=== PATIENT | female | born 1940 | race Caucasian/White ===

== ENCOUNTER 2023-08-24 10:45 | Inpatient (IN) | payer MEDICARE, SELFPAY ==
[2023-08-24] VITALS (8 sets, daily range): BP systolic 127–153; BP diastolic 52–79; PULSE 75–92; RESP 14–25; TEMP 36.9–37.3; O2SAT 95–100
--- NOTE | ~2023-08-24 | MR_ITS ---
EXAMINATION: MR brain/brain stem wo con DATE: 08/25/2023 14:39 INDICATION: TIA/LT sided weakness TECHNIQUE: Magnetic resonance imaging (MRI) of the brain and brainstem was performed without intraven ous contrast. Sequences included sagittal and axial T1-weighted SE, axial diffusion-weighted FS EPI A SSET, axial T2*-weighted GRE, axial T2-weighted FLAIR Propeller, and axial T2-weighted Propeller. Pos tcontrast axial and coronal T1-weighted SE was obtained. Apparent diffusion coefficient (ADC) maps we re created. COMPARISON: CT brain 08/24/2023. FINDINGS: No abnormal restricted diffusion to suggest acute ischemic infarct. No MRI evidence of hemorrhage or extra-axial collection. No suspicious foci of susceptibility to suggest prior intraparenchymal hemorr tricia. Scattered foci of white matter hyperintensity, likely representing mild small vessel ischemic d isease. No evidence of advanced or lobar predominant parenchymal volume loss. The basilar cisterns ar e patent. Flow voids are preserved. Right mastoid fluid. Paranasal sinuses are within normal limits. Globes and orbital contents are within normal limits. IMPRESSION: No acute intracranial abnormality. Reviewed, dictated and finalized at location K.
--- NOTE | ~2023-08-24 | CT_ITS ---
EXAMINATION: CT abdomen pelvis w con DATE: 08/24/2023 12:24 INDICATION: Lower abdominal pain. TECHNIQUE: Computed tomography (CT) of the abdomen and pelvis was performed with 100 mL Omnipaque 350 intravenous contrast. Automated exposure control and iterative reconstruction technique were employe d. The dose-length product was 191.19 mGy-cm. COMPARISON: None. FINDINGS: The visualized portions of the lung bases demonstrate mild atelectasis. No pleural effusion . The heart size is normal. No pericardial effusion. The liver, gallbladder, spleen, pancreas, adrena l glands, and kidneys are normal. There are no dilated loops of bowel. The appendix is not visualized . Aortic atherosclerosis is noted. There are no pathologically enlarged lymph nodes. There is no free intraperitoneal fluid. There is mild lumbar spondylosis. IMPRESSION: 1. No etiology for the patient's symptoms. Reviewed, dictated and finalized at location A.
--- NOTE | ~2023-08-24 | CT_ITS ---
EXAMINATION: CT brain wo con DATE: 08/24/2023 12:24 INDICATION: Altered mental status. TECHNIQUE: Computed tomography (CT) of the head was performed without intravenous contrast. The mA wa s adjusted according to patient size. Iterative reconstruction technique was employed. The dose-lengt h product was 529.67 mGy-cm. COMPARISON: None FINDINGS: There is no intracranial hemorrhage, acute infarction, or abnormal intracranial mass lesion . The ventricles are normal in size. There is mild mucosal thickening in the ethmoid sinuses. There i s a small right mastoid effusion. IMPRESSION: 1. Normal brain. Reviewed, dictated and finalized at location A. IMPRESSION: 1. Normal brain.
--- NOTE | ~2023-08-24 | XR_ITS ---
EXAMINATION: XR chest 1V portable DATE: 08/24/2023 11:19 INDICATION: Altered mental status. TECHNIQUE: A single frontal view of the chest was obtained. COMPARISON: None. FINDINGS: There is a diffuse interstitial pattern, consistent mild pulmonary edema. No pleural effusi on or pneumothorax. The heart size is normal. IMPRESSION: 1. Mild pulmonary edema. Reviewed, dictated and finalized at location A. IMPRESSION: 1. Mild pulmonary edema.
--- NOTE | ~2023-08-24 | CT_ITS ---
EXAMINATION: CTA brain carotid DATE: 08/25/2023 14:52 INDICATION: TIA/LT sided weakness TECHNIQUE: Computed tomographic angiography (CTA) of the head was performed without and with 100 mL O mnipaque-350 intravenous contrast. CTA of the neck was performed with intravenous contrast. Automated exposure control and iterative reconstruction technique were employed. The dose-length product was 1 480.10 mGy-cm. Maximum intensity projection and volume rendered 3D-reconstructions were created by isa jarvis technologist on a separate workstation. COMPARISON: CT brain 08/24/2023; MR brain 08/25/2023. FINDINGS: CT BRAIN: No acute large vessel infarct, intracranial hemorrhage, mass, or hydrocephalus. Mild chronic white ma tter change. Right mastoid fluid. Mild right inferior maxillary sinus mucosal thickening. CTA HEAD: No large vessel occlusion, aneurysm, high flow vascular malformation, nidus or extravasation. Persist ent origin of the right posterior cerebral artery, a normal variant CTA NECK: Aortic arch and proximal great vessels: Aberrant right subclavian artery, a normal variant. No signif icant aortic arch or branch vessel plaque. Right common carotid, carotid bifurcation, and internal carotid artery: Mild calcified plaque at the bifurcation.There is 0% stenosis of the proximal right internal carotid artery relative to normal dis betzy artery lumen diameter (NASCET criteria). Left common carotid, carotid bifurcation, and internal carotid artery: Mild calcified plaque at the b ifurcation.There is 0% stenosis of the proximal left internal carotid artery relative to normal dista l artery lumen diameter (NASCET criteria). Vertebral arteries: No significant plaque or stenosis. Left vertebral artery is dominant. Other findings: Degenerative changes in the cervical spine. Mild biapical pleural thickening. Septal thickening in the lungs. IMPRESSION: No acute intracranial process. No large vessel intracranial occlusion, high-grade intracranial stenosis, or aneurysm. No carotid or vertebral artery occlusion, dissection, or significant stenosis. Reviewed, dictated and finalized at location K. IMPRESSION: No acute intracranial process. No large vessel intracranial occlusion, high-grade intracranial stenosis, or an eurysm. No carotid or vertebral artery occlusion, dissection, or significant stenosis.
--- NOTE | 2023-08-24 11:01 | ECG_ITS ---
Test Date: 2023-08-24 11:19:36 Measurements Intervals [place] Rate: 79 P: 24 NV: 157 QRS: 29 QRSD: 86 T: 47 QT: 359 QTc: 412 Interpretive Statements SINUS RHYTHM NORMAL ECG No previous ECG available for comparison Electronically Signed On 08-25-2023 07:33:40 CDT by Hoang London D.O.
--- NOTE | 2023-08-24 11:05 | ED.GENADULT ---
HPI - General Adult General Chief complaint: Altered Mental Status Stated complaint: CONFUSION X 4D Time Seen by Provider: 08/24/23 10:56 History of Present Illness HPI narrative: Patient 82-year-old female who presents emergency department with chief complaint of altered mental status. Per the patient's family about 2 weeks ago they noticed that she started to have decline after her significant other required hospitalization longterm placement the patient now has had issues with confusion worse at night where she had a shuffling gait and has been forgetting things and having difficulty caring for self. The patient has had several accidents where she is thigh urinated on herself the patient was seen in urgent care and started on nitrofurantoin for possible UTI the patient does have some history of dementia but has not really seen her primary care provider in extended period of time Related Data Allergies Allergy/AdvReac Type Severity Reaction Status Date / Time Sulfa (Sulfonamide Allergy Unknown Unknown Verified 08/24/23 10:47 Antibiotics) Review of Systems Review of Systems: A 10 system review of systems was completed on the patient and is negative except for what is stated in the HPI. Nursing and ancillary documentation was reviewed. [facility] Family History Family History Sibling Family history of diabetes mellitus in first degree relative Social History Social History Smoking status: Never smoker Alcohol intake: never Exam Narrative: GENERAL: Well-appearing, well-nourished, and in no acute distress. HEAD: Normocephalic, atraumatic. EYES: PERRLA and EOMI. ENT: Nares clear, no rhinorrhea or epistaxis. Mucous membranes moist. NECK: Supple. CHEST: Clear to auscultation. No respiratory distress. HEART: Regular rate and rhythm. No murmur heard. Normal peripheral pulses. ABDOMEN: Soft, nontender, nondistended, normal active bowel sounds. EXTREMITIES: Normal range of motion. No edema. SKIN: Warm, dry, no rash. NEURO: No focal deficits. Alert and oriented x3. PSYCH: Normal mood and affect. Course Vital Signs Vital signs: Vital Signs Pulse Rate 80 08/24/23 11:05 Respiratory Rate 14 08/24/23 11:05 Blood Pressure 133/79 08/24/23 11:05 Pulse Oximetry 98 07/06/24 11:05 Oxygen Delivery Room Air 08/24/23 11:05 Pulse Rate 88 08/24/23 11:35 Respiratory Rate 14 08/24/23 11:35 Blood Pressure 148/77 H 08/24/23 11:35 Pulse Oximetry 97 08/24/23 11:35 Oxygen Delivery Room Air 08/24/23 11:35 Medical Decision Making MDM Narrative Medical decision making narrative: Differential diagnosis includes altered mental status, CVA, electrolyte abnormality, dehydration, UTI, pneumonia, intra-abdominal infection Laboratory studies were obtained on the patient showed a white count of 6.1 electrolytes showed a BUN of 18 creatinine 00.7 liver enzymes were mildly elevated with an AST of 139 ALT of 107 troponin was negative BNP was 3 8 5 procalcitonin 0.3 urinalysis showed 11-20 white blood cells 1+ leukocyte esterase COVID flu and RSV were negative Chest x-ray showed no focal infiltrate CT head showed no acute abnormality CT of the abdomen pelvis showed no acute abnormality Patient started on Rocephin given the altered mental status the patient was admitted the hospitalist service Vital Signs Vital Signs: Vital Signs Pulse Rate 80 08/24/23 11:05 Respiratory Rate 14 08/24/23 11:05 Blood Pressure 133/79 08/24/23 11:05 Pulse Oximetry 98 08/24/23 11:05 Oxygen Delivery Room Air 08/24/23 11:05 Pulse Rate 88 08/24/23 11:35 Respiratory Rate 14 08/24/23 11:35 Blood Pressure 148/77 H 08/24/23 11:35 Pulse Oximetry 97 08/24/23 11:35 Oxygen Delivery Room Air 08/24/23 11:35 Lab Data 08/24/23 11:26 06
[2023-08-24] MEDS: SODIUM CHLORIDE 0.9% IV 1,000 ML 999 ML IV CONT (11:24)
[2023-08-24 11:36] LABS: Basophils Percent Auto 0.3 % (0.2-1.2); Eosinophils Absolute Auto 0.1 K/mm3 (0-0.3); Hematocrit 37.5 % (37.0-47.0); Hemoglobin 12.6 g/dL (12.0-15.0); Immature Granulocyte Absolute 0.04 K/mm3 (0.00-0.031); Immature Granulocyte Percent A 0.7 % (0-0.5); Immature Platelet Fraction Pct 2.5 % (0.9-11.2); Lymphocytes Absolute Auto 0.18 K/mm3 (0.9-3.2); Mean Corpuscular HGB Conc 33.6 g/dl (32-36); Mean Corpuscular Hemoglobin 31.5 pg (26-34); Mean Corpuscular Volume 93.8 fl (80-100); Mean Platelet Volume 9.5 fl (7.4-10.4); Monocytes Absolute Auto 0.5 K/mm3 (0.1-0.6); Monocytes Percent Auto 7.9 % (2.6-8.5); Neutrophils Absolute Auto 5.2 K/mm3 (1.3-6.7); Neutrophils Percent Auto 86.1 % (45.5-73.1); Platelet Count Result 123 k/mm3 (150-375); Red Cell Distribution Width 12.9 % (11.5-14.5); White Blood Count 6.1 K/mm3 (4.5-10.0)
[2023-08-24 11:46] LABS: Prothrombin Time 13.3 Seconds (11.1-14.7)
[2023-08-24 11:47] LABS: Partial Thromboplastin Time 28.8 Seconds (22.3-36.8)
[2023-08-24 11:48] LABS: Alanine Aminotransferase 107 U/L (6-35); Albumin Level 3.8 g/dL (3.5-5.1); Alkaline Phosphatase 113 U/L (38-126); Anion Gap 5 mmol/L (4-12); Aspartate Amino Transferase 139 U/L (14-36); Bilirubin,Total 1.3 mg/dL (0.2-1.3); Blood Urea Nitrogen 18 mg/dL (7-17); Carbon Dioxide 28 mmol/L (22-30); Chloride 101 mmol/L (98-107); Estimated Glomerular Filt Rate > 60; Glucose 99 mg/dL (65-110); Lactic Acid Reflex 1.1 mmol/L (0.7-2.0); Potassium 3.5 mmol/L (3.4-5.0); Sodium 134 mmol/L (137-145)
[2023-08-24 11:59] LABS: NT Pro B Type Natriuretic Pept 385 pg/mL (19.9-100); Troponin I < 0.012 ng/mL (0.000-0.034)
[2023-08-24 12:00] LABS: Appearance Urine Clear (Clear); Bacteria Urine None Seen /hpf; Bilirubin Urine Negative (Negative); Blood Urine Negative (Negative); Color Urine Yellow (Yellow); Glucose Urine UA Negative (Negative); Ketones Urine Negative (Negative); Leukocyte Esterase Ur 1+ LEU/UL (Negative); Need Manual Microscopic Reviewed; Nitrate Urine Negative (Negative); Non Pathogenic Casts 0-2; Protein Urine Negative (Negative); RBC Urine 0-2 /hpf (0-2); Specific Grav Ur 1.006 (1.001-1.035); Squamous Epithelial Cell Urine None Seen /hpf (Few); pH Urine 6.5 (5.0-9.0)
[2023-08-24 12:01] LABS: Add Urine Microscopic? YES
[2023-08-24 12:05] LABS: Procalcitonin 0.3 ng/mL
[2023-08-24 12:11] LABS: Influenza A QL RT-PCR Negative (Negative); Influenza B QL RT-PCR Negative (Negative); RSV RNA, RT-PCR Negative (Negative); SARS-CoV-2 RNA PCR Negative (Negative)
--- NOTE | 2023-08-24 14:36 | PM.IMHP ---
H&P: HPI History of Present Illness Date/Time: 08/24/23 14:36 Chief Complaint: AMS Narrative: 82 y/o F presents here with AMS with PMH of dementia, arthritis, and depression. The patient presents here from home with family for further evaluation of AMS. Patient is typically A/Ox4. Family at bedside is reporting that patient has been declining over the past week. Family citing a new shuffling gait, more forgetful, difficulty performing her ADLs, new incontinence as examples. Precipitated by her requiring hospitalization and subsequent alf placement ([facility] in [place]) about 3 weeks ago. They were living at home together and independently prior. Patient was seen on 08/20 at a local urgent care. There she was diagnosed with the UTI and started on Macrobid 100 mg b.i.d. x7 days on 08/21/2023. With the antibiotics they have seen no improvement in her mentation, however they were concerned that she is no longer safe at home with them at night. Has been home alone during the day and has been staying with her niece or nephew at night. Initial VS at presentation: HR 80, RR 14, 133/79, and 98% on RA. ED workup showed: No leukocytosis, no anemia, normal coags, sodium 134, creatinine 0.7 and GFR >60, BNP 385, procalcitonin 0.3, lactic 1.1. UA showed 1+ leuks and 11-20 WBC. CXR showed mild pulmonary edema. Head CT showed normal aging brain. CT abdomen/pelvis showed no etiology for the patient's symptoms. Review of Systems Review of Systems: All systems reviewed & are unremarkable except as noted in HPI and below [facility] Past Medical History Medical History Arthritis Dementia Depression Family History Family History Sibling Family history of diabetes mellitus in first degree relative Social History Social History Smoking status: Never smoker Alcohol intake: never Substance use: never Do You Feel Safe in your Home?: Yes Lack of Transportation: No Lack of Food: Never True Current Housing: I Have Housing Concerned About Future Housing: No Difficulty Paying Gas/Electric Bills: No Difficulty Paying for Meds: No Currently Unemployed: No Education: High School Diploma/GED Difficulty w/ Childcare or Family Care: No Spiritual care concerns: No Meds Home Medications and Allergies Home Medications Medication Instructions Recorded Confirmed Type aripiprazole 2 mg tablet 2 mg PO HS 08/24/23 08/24/23 History sertraline 25 mg tablet 25 mg PO DAILY 08/24/23 08/24/23 History Allergies Allergy/AdvReac Type Severity Reaction Status Date / Time Sulfa (Sulfonamide Allergy Unknown Unknown Verified 08/24/23 10:47 Antibiotics) Vital Signs Vital Signs - 24 hr 08/24/23 11:05 08/24/23 11:35 08/24/23 11:35 Pulse Rate 80 80 Respiratory Rate 14 Blood Pressure 133/79 Pulse Oximetry 98 98 Oxygen Delivery Room Air Room Air 08/24/23 11:35 08/24/23 13:30 08/24/23 12:30 Pulse Rate 88 84 75 Respiratory Rate 14 25 H 14 Blood Pressure 148/77 H 140/62 148/77 H Pulse Oximetry 97 98 98 Oxygen Delivery 08/24/23 14:25 Pulse Rate 82 Respiratory Rate 14 Blood Pressure 134/68 Pulse Oximetry 97 Oxygen Delivery Exam Const: General: comfortable and no acute distress Other: , female, nontoxic appearance HENMT: Face/Nose/Sinus: Normal nares present Mouth: Yes moist mucous membranes Eyes: General: appearance normal, both eyes and all related structures Sclera: sclerae normal Pupils: Equal, round and reactive pupils present EOM: EOMs intact bilaterally Resp: Effort & Inspection: normal respiratory effort Auscultation: clear to auscultation bilaterally Cardio: Rate: regular rate Rhythm: regular rhythm Other: +/- murmur best heard at the mitral re
[2023-08-24] MEDS: ARIPiprazole 2 MG TABLET PO (21:40)
[2023-08-24] MEDS: SODIUM CHLORIDE 0.9% IV 1,000 ML 100 ML IV CONT (21:43)
[2023-08-25 05:15] VITALS: BP 116/60; PULSE 80; RESP 20; TEMP 36.1; O2SAT 95
[2023-08-25 06:14] LABS: Basophils Percent Auto 0.7 % (0.2-1.2); Eosinophils Absolute Auto 0.3 K/mm3 (0-0.3); Eosinophils Percent Auto 7.9 % (0-4.4); Hematocrit 33.2 % (37.0-47.0); Hemoglobin 11.2 g/dL (12.0-15.0); Immature Granulocyte Absolute 0.02 K/mm3 (0.00-0.031); Immature Granulocyte Percent A 0.5 % (0-0.5); Lymphocytes Absolute Auto 0.23 K/mm3 (0.9-3.2); Lymphocytes Percent Auto 5.7 % (18.3-44.2); Mean Corpuscular HGB Conc 33.7 g/dl (32-36); Mean Platelet Volume 9.8 fl (7.4-10.4); Monocytes Absolute Auto 0.5 K/mm3 (0.1-0.6); Monocytes Percent Auto 12.9 % (2.6-8.5); Neutrophils Absolute Auto 2.9 K/mm3 (1.3-6.7); Neutrophils Percent Auto 72.3 % (45.5-73.1); Platelet Count Result 111 k/mm3 (150-375); Red Blood Count 3.61 M/mm3 (4.2-5.4); Red Cell Distribution Width 12.5 % (11.5-14.5)
[2023-08-25 06:38] LABS: Alanine Aminotransferase 156 U/L (6-35); Alkaline Phosphatase 141 U/L (38-126); Anion Gap 5 mmol/L (4-12); Aspartate Amino Transferase 148 U/L (14-36); Blood Urea Nitrogen 10 mg/dL (7-17); Calcium 8.5 mg/dL (8.4-10.2); Carbon Dioxide 27 mmol/L (22-30); Chloride 105 mmol/L (98-107); Estimated Glomerular Filt Rate > 60; Glucose 99 mg/dL (65-110); Potassium 3.1 mmol/L (3.4-5.0); Sodium 137 mmol/L (137-145)
--- NOTE | 2023-08-25 08:08 | PM.IMPN ---
Progress Note: A&P Assessment and Plan (1) Altered mental status: Code(s): R41.82 - Altered mental status, unspecified Status: Acute (2) Acute UTI: Code(s): N39.0 - Urinary tract infection, site not specified Status: Acute (3) Elevated liver enzymes: Code(s): R74.8 - Abnormal levels of other serum enzymes Status: Acute (4) Dementia: Code(s): F03.90 - Unspecified dementia, unspecified severity, without behavioral disturbance, psychotic disturbance, mood disturbance, and anxiety Status: Chronic (5) Depression: Code(s): F32.A - Depression, unspecified Status: Chronic Plan AMS Unknown baseline CT head: Normal brain. complicated by hx of dementia care coordination consulted for help with possible NH placement PT/OT to evaluate patient if patient is a good candidate for NH suspect alteration secondary to recent big life change (spouse no longer in home) and current UTI LT sided weakness CTA pending MRI pending UTI CT abd/pelvis: No etiology for the patient's symptoms. 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 elevated liver enzymes unknown cause will monitor and PT/OT pending for discharge recommendations. Time Spent With Patient Time with patient: 15 - 25 minutes Subjective Date/time seen: 08/25/23 08:08 Interval history: Admission: Medical Record 82 y/o F presents here with AMS with PMH of dementia, arthritis, and depression. The patient presents here from home with family for further evaluation of AMS. Patient is typically A/Ox4. Family at bedside is reporting that patient has been declining over the past week. Family citing a new shuffling gait, more forgetful, difficulty performing her ADLs, new incontinence as examples. Precipitated by her requiring hospitalization and subsequent group home placement ([facility] in [place]) about 3 weeks ago. They were living at home together and independently prior. Patient was seen on 08/20 at a local urgent care. There she was diagnosed with the UTI and started on Macrobid 100 mg b.i.d. x7 days on 08/21/2023. With the antibiotics they have seen no improvement in her mentation, however they were concerned that she is no longer safe at home with them at night. Has been home alone during the day and has been staying with her niece or nephew at night. Initial VS at presentation: HR 80, RR 14, 133/79, and 98% on RA. ED workup showed: No leukocytosis, no anemia, normal coags, sodium 134, creatinine 0.7 and GFR >60, BNP 385, procalcitonin 0.3, lactic 1.1. UA showed 1+ leuks and 11-20 WBC. CXR showed mild pulmonary edema. Head CT showed normal aging brain. CT abdomen/pelvis showed no etiology for the patient's symptoms. 08/25/2023: Assumed Care Patient is pleasantly confused but did no her date of and the year. Some LT sided weakness noted will get CTA/MRI, UA culture pending. PT/OT ordered for discharge recommendations unsure patient baseline. Review of Systems Review of Systems: All systems reviewed & are unremarkable except as noted in HPI and below Exam Narrative: Physical Exam: GENERAL: Alert and oriented x 2, pleasantly confused . No acute distress. EYES: EOMI. No scleral icterus. PERRLA. HEENT: Moist m
[2023-08-25 08:46] LABS: Lipase 107 U/L (23-300)
[2023-08-25 09:19] LABS: Hepatitis B Surface Antigen Negative (Negative)
[2023-08-25 09:25] LABS: HAV RESULT Negative (Negative); Hepatitis B Core IgM Result Negative (Negative)
[2023-08-25 09:37] LABS: Hepatitis C Virus Antibody Negative (Negative)
[2023-08-25] MEDS: SERTRALINE HCL 25 MG TABLET PO (10:56)
[2023-08-25] MEDS: PANTOPRAZOLE 40 MG TABLET PO (10:56)
[2023-08-25] MEDS: POTASSIUM CHLORIDE 20 MEQ ER TABLET 40 MEQ PO (10:56)
[2023-08-25] MEDS: SODIUM CHLORIDE 0.9% IV 1,000 ML 75 ML IV CONT (11:00)
[2023-08-25 13:58] VITALS: BMI 24.5
[2023-08-25 14:00] VITALS: BP 147/65; PULSE 76; RESP 20; TEMP 36.8; O2SAT 98
--- NOTE | 2023-08-25 15:03 | PCPTNOTE ---
Attempted to evaluate patient, but patient is out of room getting MRI performed. Physical therapy will check on patient tomorrow as time allows.
[2023-08-25 20:00] VITALS: O2SAT 97
[2023-08-25 21:08] VITALS: BP 166/73; PULSE 72; RESP 14; TEMP 36.9; O2SAT 97
[2023-08-25] MEDS: ARIPiprazole 2 MG TABLET PO (21:25)
[2023-08-26 05:29] VITALS: BP 168/72; PULSE 77; RESP 12; TEMP 36.4; O2SAT 94
[2023-08-26 05:47] LABS: Hematocrit 35.7 % (37.0-47.0); Hemoglobin 12.4 g/dL (12.0-15.0); Mean Corpuscular HGB Conc 34.7 g/dl (32-36); Mean Corpuscular Hemoglobin 30.8 pg (26-34); Mean Corpuscular Volume 88.8 fl (80-100); Mean Platelet Volume 9.3 fl (7.4-10.4); Platelet Count Result 128 k/mm3 (150-375); Red Blood Count 4.02 M/mm3 (4.2-5.4); Red Cell Distribution Width 12.4 % (11.5-14.5); White Blood Count 4.1 K/mm3 (4.5-10.0)
[2023-08-26 05:57] LABS: Alanine Aminotransferase 343 U/L (6-35); Albumin Level 3.6 g/dL (3.5-5.1); Alkaline Phosphatase 258 U/L (38-126); Anion Gap 9 mmol/L (4-12); Aspartate Amino Transferase 294 U/L (14-36); Bilirubin,Total 1.3 mg/dL (0.2-1.3); Blood Urea Nitrogen 10 mg/dL (7-17); Carbon Dioxide 25 mmol/L (22-30); Chloride 106 mmol/L (98-107); Cholesterol 165 mg/dL (0-200); Estimated CRCL calculation 55 ml/min; Estimated Glomerular Filt Rate > 60; Glucose 119 mg/dL (65-110); HDL Direct 59 mg/dL; Potassium 3.4 mmol/L (3.4-5.0); Sodium 140 mmol/L (137-145); Triglycerides 84 mg/dL (<150)
[2023-08-26 06:08] LABS: LDL Cholesterol Direct 87 mg/dL
[2023-08-26] MEDS: PANTOPRAZOLE 40 MG TABLET PO (08:22)
[2023-08-26] MEDS: SERTRALINE HCL 25 MG TABLET PO (08:22)
[2023-08-26] MEDS: SODIUM CHLORIDE 0.9% IV 1,000 ML 75 ML IV CONT (09:18)
[2023-08-26 14:00] VITALS: BP 174/88; PULSE 72; RESP 18; TEMP 36.6; O2SAT 100
--- NOTE | 2023-08-26 15:26 | PM.IMPN ---
Progress Note: A&P Assessment and Plan (1) Dementia: Code(s): F03.90 - Unspecified dementia, unspecified severity, without behavioral disturbance, psychotic disturbance, mood disturbance, and anxiety Status: Chronic (2) Depression: Code(s): F32.A - Depression, unspecified Status: Chronic (3) Acute UTI: Code(s): N39.0 - Urinary tract infection, site not specified Status: Acute (4) Altered mental status: Code(s): R41.82 - Altered mental status, unspecified Status: Acute (5) Elevated liver enzymes: Code(s): R74.8 - Abnormal levels of other serum enzymes Status: Acute Plan # Recent UTI - patient had been diagnosed with UTI prior to hospitalization from 08/20 was given 7 days of Macrobid, patient now being admitted will give 3 days of Rocephin 08/23- - cultures are showing no growth, was on antibiotics prior to cultures being obtained - we will treat as failing outpatient antibiotics # altered mental status # dementia, delirium - likely has some delirium and exacerbation of dementia with her change of living situation with her going to nursing facility - will see for patient to go to [facility] facility as well - unclear if the change in mental status is due to this UTI or more likely delirium - stroke workup negative including CTA, MRI - PT OT consulted # hypokalemia -Repeating as needed,potassium 3.4 # chronic conditions - dementia: Aripiprazole - depression: sertraline - GERD: Protonix Diet: heart health DVT prophylaxis: SCDs, SQ heparin Code status: full code Disposition: pending [facility] facility placement Time Spent With Patient Time: 35 minutes Subjective Date/time seen: 08/26/23 15:26 Interval history: patient seen examined. She is doing well no new complaints. We will discontinue IV fluids. Continue Rocephin for UTI , will complete 3 day course. stroke workup negative. Still waiting for senior living placement. patient denies fever, chills, nausea, vomiting, diarrhea, chest pain, shortness of breath, dysuria. Review of Systems Review of Systems: 10 point ROS complete, negative other than what is specified in HPI. Limited ROS due to dementia Exam Narrative: - GENERAL: pleasant elderly woman no acute distress. Well-nourished. - EYES: EOMI. Anicteric. - HENT: Moist mucous membranes. - LUNGS: Clear to auscultation bilaterally, no wheezing, rhonchi, or rales. - CARDIOVASCULAR: Regular rate and rhythm. No murmur. No JVD. - ABDOMEN: Soft, non-tender and non-distended. No palpable masses. - EXTREMITIES: No edema. Peripheral pulses 2+. Non-tender. - NEUROLOGIC: No focal neurological deficits. CN II-XII grossly intact. - PSYCHIATRIC: Awake, Alert, disoriented, oriented to self. calm, flat affect - LYMPH: No cervical lymphadenopathy. Objective Data Vital Signs Vital Signs: Vital Signs - 24 hr 08/25/23 21:08 08/25/23 20:00 08/26/23 05:29 Temperature 36.9 C 36.4 C Pulse Rate 72 77 Respiratory Rate 14 12 Blood Pressure 166/73 H 168/72 H Pulse Oximetry 97 97 94 Oxygen Delivery Room Air 08/26/23 08:00 08/26/23 11:24 08/26/23 14:00 Temperature 36.6 C Pulse Rate 72 Respiratory Rate 18 Blood Pressure 174/88 H Pulse Oximetry 100 Oxygen Delivery Room Air Room Air Intake/Output Intake/Output: Intake & Output 08/23/23 08/24/23 08/25/23 08/26/23 23:59 23:59 23:59 23:59 Intake Total 1410 1490 2170 Output Total 500 1900 Balance 1410 990 270 Meds/Results Medications: Active Medications Generic Name Dose Route Start Last Admin Trade Name Freq PRN Reason Stop Dose Admin Acetaminophen 650 mg 08/24/23 12:47 Acetaminophen 325 Mg Tablet PO Q4H PRN Mild Pain (1-3) or Fever Aripiprazole 2 mg 08/24/23 21:00 08/25/23 21:25 Aripiprazole 2 Mg Tablet PO 2 mg HS LAMAR Administration Ceftriaxone Sodium 1 gm in 50 mls @ 100 mls/hr 08/25/23 09:
[2023-08-26 20:00] VITALS: O2SAT 100
[2023-08-26] MEDS: HEPARIN SODIUM 5,000 UNITS/ML VIAL 5000 UNITS SUB-Q (20:33)
[2023-08-26] MEDS: ARIPiprazole 2 MG TABLET PO (20:33)
[2023-08-26 20:52] VITALS: BP 156/69; PULSE 72; RESP 16; TEMP 36.7; O2SAT 99
[2023-08-27 05:45] LABS: Hematocrit 37.8 % (37.0-47.0); Mean Corpuscular HGB Conc 34.4 g/dl (32-36); Mean Corpuscular Hemoglobin 31.3 pg (26-34); Mean Corpuscular Volume 91.1 fl (80-100); Mean Platelet Volume 9.3 fl (7.4-10.4); Platelet Count Result 164 k/mm3 (150-375); Red Blood Count 4.15 M/mm3 (4.2-5.4); Red Cell Distribution Width 12.3 % (11.5-14.5); White Blood Count 4.3 K/mm3 (4.5-10.0)
--- NOTE | 2023-08-27 05:53 | PC.NURSE ---
Patient BP 210/100 manually at this time. Spoke with Dr. Dupree, says to give hydralazine 25 mg PO once. Does not want to drop BP too fast.
[2023-08-27 06:00] VITALS: BP 210/100; PULSE 73; RESP 16; TEMP 36.9; O2SAT 99
[2023-08-27] MEDS: hydrALAZINE HCL 25 MG TABLET PO (06:01)
[2023-08-27 06:02] LABS: Alanine Aminotransferase 266 U/L (6-35); Alkaline Phosphatase 229 U/L (38-126); Anion Gap 7 mmol/L (4-12); Aspartate Amino Transferase 103 U/L (14-36); Bilirubin,Total 1.1 mg/dL (0.2-1.3); Blood Urea Nitrogen 11 mg/dL (7-17); Calcium 9.3 mg/dL (8.4-10.2); Carbon Dioxide 32 mmol/L (22-30); Chloride 101 mmol/L (98-107); Estimated CRCL calculation 48 ml/min; Estimated Glomerular Filt Rate > 60; Glucose 128 mg/dL (65-110); Potassium 3.3 mmol/L (3.4-5.0); Sodium 140 mmol/L (137-145)
[2023-08-27 07:25] VITALS: BP 157/74
[2023-08-27] MEDS: POTASSIUM CHLORIDE 20 MEQ ER TABLET 40 MEQ PO (08:19)
[2023-08-27] MEDS: amLODIPine BESYLATE 10 MG TABLET PO (08:19)
[2023-08-27] MEDS: PANTOPRAZOLE 40 MG TABLET PO (08:19)
[2023-08-27] MEDS: HEPARIN SODIUM 5,000 UNITS/ML VIAL 5000 UNITS SUB-Q (08:20)
[2023-08-27] MEDS: SERTRALINE HCL 25 MG TABLET PO (08:20)
--- NOTE | 2023-08-27 11:37 | P.PNIM_ITS ---
Progress Note: A&P Assessment and Plan (1) Acute UTI: Code(s): N39.0 - Urinary tract infection, site not specified Status: Acute (2) Altered mental status: Code(s): R41.82 - Altered mental status, unspecified Status: Acute (3) Elevated liver enzymes: Code(s): R74.8 - Abnormal levels of other serum enzymes Status: Acute (4) Dementia: Code(s): F03.90 - Unspecified dementia, unspecified severity, without behavioral disturbance, psychotic disturbance, mood disturbance, and anxiety Status: Chronic (5) Depression: Code(s): F32.A - Depression, unspecified Status: Chronic (6) Essential hypertension: Code(s): I10 - Essential (primary) hypertension Status: Acute Plan # Essential Hypertension -her blood pressure up to 210/100 -starting amlodipine 10 mg, p.r.n. hydralazine for systolic pressure greater than 170 -continue monitor blood pressure # Recent UTI - patient had been diagnosed with UTI prior to hospitalization from 08/20 was ebony ramirez 7 days of Macrobid, treating as failing outpatient antibiotics. completed Rocephin 3 day course inpatient - cultures are showing no growth, was on antibiotics prior to cultures being obtained # altered mental status # dementia, delirium - likely has some delirium and exacerbation of dementia with her change of living situation with her going to nursing facility - will see for patient to go to assisted facility as well - unclear if the change in mental status is due to this UTI or more likely delirium - stroke workup negative including CTA, MRI - PT OT consulted # hypokalemia -Repeating as needed,potassium 3.3 # chronic conditions - dementia: Aripiprazole - depression: sertraline - GERD: Protonix Diet: heart health DVT prophylaxis: SCDs, SQ heparin Code status: full code Disposition: pending assisted facility placement Time Spent With Patient Time: 35 minutes Subjective Date/time seen: 08/27/23 11:37 Interval history: Patient seen and examined. We completed antibiotics for UTI. Patient was slightly hypertensive today, starting amlodipine, p.r.n. hydralazine. Replete potassium. We are awaiting placement to [facility]. Patient denies fever, chills, nausea and diarrhea. She continues to be pleasantly confused. Review of Systems Review of Systems: 10 point ROS complete, negative other th an what is specified in HPI. Limited due to dementia Exam Narrative: - GENERAL: pleasant elderly woman no ac [place] distress. Well-nourished. - EYES: EOMI. Anicteric. - HENT: Moist mucous membranes. - LUNGS: Clear to auscultation bilateral ly, no wheezing, rhonchi, or rales. - CARDIOVASCULAR: Regular rate and rhyth m. - ABDOMEN: Soft, non-tender and non-dist ended. No palpable masses. - EXTREMITIES: No edema. Peripheral puls es 2+. Non-tender. - NEUROLOGIC: No focal neurological defi cits. CN II-XII grossly intact. - PSYCHIATRIC: Awake, Alert, disoriented , oriented to self. calm, flat affect - LYMPH: No cervical lymphaden
--- NOTE | 2023-08-27 11:37 | PM.IMPN ---
Progress Note: A&P Assessment and Plan (1) Acute UTI: Code(s): N39.0 - Urinary tract infection, site not specified Status: Acute (2) Altered mental status: Code(s): R41.82 - Altered mental status, unspecified Status: Acute (3) Elevated liver enzymes: Code(s): R74.8 - Abnormal levels of other serum enzymes Status: Acute (4) Dementia: Code(s): F03.90 - Unspecified dementia, unspecified severity, without behavioral disturbance, psychotic disturbance, mood disturbance, and anxiety Status: Chronic (5) Depression: Code(s): F32.A - Depression, unspecified Status: Chronic (6) Essential hypertension: Code(s): I10 - Essential (primary) hypertension Status: Acute Plan # Essential Hypertension -her blood pressure up to 210/100 -starting amlodipine 10 mg, p.r.n. hydralazine for systolic pressure greater than 170 -continue monitor blood pressure # Recent UTI - patient had been diagnosed with UTI prior to hospitalization from 08/20 was given 7 days of Macrobid, treating as failing outpatient antibiotics. completed Rocephin 3 day course inpatient - cultures are showing no growth, was on antibiotics prior to cultures being obtained # altered mental status # dementia, delirium - likely has some delirium and exacerbation of dementia with her change of living situation with her going to nursing facility - will see for patient to go to long-term facility as well - unclear if the change in mental status is due to this UTI or more likely delirium - stroke workup negative including CTA, MRI - PT OT consulted # hypokalemia -Repeating as needed,potassium 3.3 # chronic conditions - dementia: Aripiprazole - depression: sertraline - GERD: Protonix Diet: heart health DVT prophylaxis: SCDs, SQ heparin Code status: full code Disposition: pending long-term facility placement Time Spent With Patient Time: 35 minutes Subjective Date/time seen: 08/27/23 11:37 Interval history: Patient seen and examined. We completed antibiotics for UTI. Patient was slightly hypertensive today, starting amlodipine, p.r.n. hydralazine. Replete potassium. We are awaiting placement to residential. Patient denies fever, chills, nausea and diarrhea. She continues to be pleasantly confused. Review of Systems Review of Systems: 10 point ROS complete, negative other than what is specified in HPI. Limited due to dementia Exam Narrative: - GENERAL: pleasant elderly woman no acute distress. Well-nourished. - EYES: EOMI. Anicteric. - HENT: Moist mucous membranes. - LUNGS: Clear to auscultation bilaterally, no wheezing, rhonchi, or rales. - CARDIOVASCULAR: Regular rate and rhythm. - ABDOMEN: Soft, non-tender and non-distended. No palpable masses. - EXTREMITIES: No edema. Peripheral pulses 2+. Non-tender. - NEUROLOGIC: No focal neurological deficits. CN II-XII grossly intact. - PSYCHIATRIC: Awake, Alert, disoriented, oriented to self. calm, flat affect - LYMPH: No cervical lymphadenopathy. Objective Data Vital Signs Vital Signs: Vital Signs - 24 hr 08/26/23 14:00 08/26/23 20:00 08/26/23 20:52 Temperature 36.6 C 36.7 C Pulse Rate 72 72 Respiratory Rate 18 16 Blood Pressure 174/88 H 156/69 H Pulse Oximetry 100 100 99 Oxygen Delivery Room Air 08/27/23 06:00 08/27/23 07:25 Temperature 36.9 C Pulse Rate 73 Respiratory Rate 16 Blood Pressure 210/100 H 157/74 H Pulse Oximetry 99 Oxygen Delivery Intake/Output Intake/Output: Intake & Output 08/24/23 08/25/23 08/26/23 08/27/23 23:59 23:59 23:59 23:59 Intake Total 1410 1490 2910 240 Output Total 500 3951 Balance 1410 990 -1041 240 Meds/Results Medications: Active Medications Generic Name Dose Route Start Last Admin Trade Name Danisq PRN Reason Stop Dose Admin Acetaminophen 650 mg 08/24/23 12:47 Acetaminophen 325 Mg Tablet PO Q4H PRN M
--- NOTE | 2023-08-27 13:26 | PM.DS ---
DS: Admitting Diagnosis Discharge Date 08/27/23 Admitting Diagnosis Altered mental status, UTI DS: Discharge Diagnosis Discharge Diagnosis (1) Essential hypertension: Code(s): I10 - Essential (primary) hypertension Status: Acute (2) Depression: Code(s): F32.A - Depression, unspecified Status: Chronic (3) Elevated liver enzymes: Code(s): R74.8 - Abnormal levels of other serum enzymes Status: Acute (4) Dementia: Code(s): F03.90 - Unspecified dementia, unspecified severity, without behavioral disturbance, psychotic disturbance, mood disturbance, and anxiety Status: Chronic (5) Altered mental status: Code(s): R41.82 - Altered mental status, unspecified Status: Acute (6) Acute UTI: Code(s): N39.0 - Urinary tract infection, site not specified Status: Acute Plan # Essential Hypertension -her blood pressure up to 210/100 -starting amlodipine 10 mg -continue monitor blood pressure, f/u with PCP # Recent UTI - patient had been diagnosed with UTI prior to hospitalization from 08/20 was given 7 days of Macrobid, treating as failing outpatient antibiotics. completed Rocephin 3 day course inpatient - cultures are showing no growth, was on antibiotics prior to cultures being obtained # altered mental status # dementia, delirium - likely has some delirium and exacerbation of dementia with her change of living situation with her going to nursing facility - will see for patient to go to shelter facility as well - unclear if the change in mental status is due to this UTI or more likely delirium - stroke workup negative including CTA, MRI - PT OT consulted # hypokalemia -Repeating as needed,potassium 3.3 # chronic conditions - dementia: Aripiprazole - depression: sertraline - GERD: Protonix Diet: heart health DVT prophylaxis: SCDs, SQ heparin Code status: full code Disposition: Home with home health DS: Summary Hospital Course Reason for hospitalization: Altered mental status and UTI Hospital Course: Patient is an 82 y/o female with past medical history dementia, arthritis, depression who presents to ED on 08/24/2023 with worsening function at ADLs. Her symptoms got worse when her was hospitalized and placed in the nursing facility [facility] in [place]. On 08/21/2023 patient was seen at urgent care and was given Macrobid for UTI, however came to hospital on 08/23 for worsening functional status. Patient was treated with IV antibiotics Rocephin for 08/23-08/26. Her dementia is quite significant requiring redirecting from the nursing staff. Her labs and vitals are stable, as she completed antibiotics for UTI, she is medically stable for discharge home. Patient's family is arranging for home health aide. We can provide home health with RN for the new blood pressure medication and to monitor BP. If patient continues to fail at home with her dementia, she may require detention shelter care. Family understand and agree with plan. Status at Discharge Cognitive/behavioral status at discharge: confused at baseline, dementia Time Spent with Patient Time attestation: Total time spent providing and/or coordinating discharge services: 35 minutes Exam Narrative: - GENERAL: pleasant elderly woman no acute distress. Well-nourished. - EYES: EOMI. Anicteric. - HENT: Moist mucous membranes. - LUNGS: Clear to auscultation bilaterally, no wheezing, rhonchi, or rales. - CARDIOVASCULAR: Regular rate and rhythm. - ABDOMEN: Soft, non-tender and non-distended. No palpable masses. - EXTREMITIES: No edema. Peripheral pulses 2+. Non-tender. - NEUROLOGIC: No focal neurological deficits. CN II-XII grossly intact. - PSYCHIATRIC: Awake, Alert, disoriented, oriented to self. calm, flat affect - LYMPH: No cervical lymphadenopathy. DS: Data Data Completed and Pending Labs on day of discharge: Labs from last 24 hours
[2023-08-27 14:00] VITALS: BP 138/65; PULSE 87; RESP 16; TEMP 36.4; O2SAT 99
== END 2023-08-27 16:00 | disposition home health service (06) | DRG 690 ==
LOC: ANHED 12:50 → ANH3MEDSUR 14:42
PROVIDERS: Nurse Practitioner Family; Student in an Organized Health Care Education/Training Program; Admitting Provider Internal Medicine; Emergency Provider Emergency Medicine; PCP Internal Medicine; Visit Provider Student in an Organized Health Care Education/Training Program
DX: N39.0 Urinary tract infection, site not specified (principal); F05 Delirium due to known physiological condition; E87.6 Hypokalemia; I10 Essential (primary) hypertension; R74.8 Abnormal levels of other serum enzymes; F03.90 Unspecified dementia, unspecified severity, without behavioral disturbance, psychotic disturbance, mood disturbance, and anxiety; F32.A Depression, unspecified; Z20.822 Contact with and (suspected) exposure to COVID-19
CPT/HCPCS: 36415; 70450; 70496; 70498; 70551; 71045; 74177; 80053; 80061; 80074; 81001; 83605; 83690; 83735; 83880; 84145; 84484; 85025; 85027; 85055; 85610; 85730; 87086; 87088; 87637; 93005; 96361; 96365; 97161; 97165; 97535; 99285; A9270; G0378; J0696; J1644; J7030; Q9967

== ENCOUNTER 2023-08-29 16:32 | Inpatient (IN) | payer MEDICARE, SELFPAY ==
[2023-08-29] VITALS (10 sets, daily range): BP systolic 111–130; BP diastolic 46–70; PULSE 72–83; RESP 17–24; TEMP 36.9–37.1; O2SAT 96–100; BMI 21.2
--- NOTE | ~2023-08-29 | CT_ITS ---
EXAMINATION: CT brain wo con DATE: 08/29/2023 17:23 INDICATION: Altered mental status. TECHNIQUE: Computed tomography (CT) of the head was performed without intravenous contrast. The mA wa s adjusted according to patient size. Iterative reconstruction technique was employed. The dose-lengt h product was 605.33 mGy-cm. COMPARISON: Head CT 08/25/23 FINDINGS: There is no intracranial hemorrhage, acute infarction, or abnormal intracranial mass lesion . The ventricles are normal in size. The ventricles are normal in size. The orbits are normal. There is mild mucosal thickening in the paranasal sinuses. There is a small right mastoid effusion. IMPRESSION: 1. Normal brain. Reviewed, dictated and finalized at location E. IMPRESSION: 1. Normal brain.
--- NOTE | ~2023-08-29 | CT_ITS ---
EXAMINATION: CT abdomen pelvis w con DATE: 08/29/2023 19:09 INDICATION: Fever. Leukocytosis. Transaminitis. Urinary tract infection. TECHNIQUE: Computed tomography (CT) of the abdomen and pelvis was performed with 100 mL Omnipaque 350 intravenous contrast. Automated exposure control and iterative reconstruction technique were employe d. The dose-length product was 184.06 mGy-cm. COMPARISON: CT abdomen and pelvis 08/24/23 FINDINGS: The visualized portions of the lung bases demonstrate mild atelectasis. No pleural effusion . The heart size is normal. No pericardial effusion. The liver, gallbladder, spleen, pancreas, adrena l glands, and right kidney are normal. There is a 4 mm cyst in left kidney. There are no dilated loop s of bowel. There is diverticulosis of the colon without evidence of diverticulitis. The appendix is not visualized. Aortic atherosclerosis is noted. There are no pathologically enlarged lymph nodes. Th ere is no free intraperitoneal fluid. There is mild thoracic and lumbar spondylosis. IMPRESSION: 1. No etiology for the patient's symptoms. Reviewed, dictated and finalized at location E.
--- NOTE | ~2023-08-29 | XR_ITS ---
EXAMINATION: XR chest 2V DATE: 08/29/2023 17:46 INDICATION: Fever and cough. TECHNIQUE: Frontal and lateral views of the chest were obtained. COMPARISON: Chest single view 08/24/23, CT abdomen and pelvis 08/24/23 FINDINGS: There are Elvin B-lines, consistent mild pulmonary edema. No pleural effusion or pneumotho rax. The heart size is normal. IMPRESSION: 1. Mild pulmonary edema. Reviewed, dictated and finalized at location E. IMPRESSION: 1. Mild pulmonary edema.
--- NOTE | 2023-08-29 16:45 | ECG_ITS ---
Test Date: 2023-08-29 16:53:04 Measurements Intervals [place] Rate: 82 P: 50 LA: 149 QRS: 42 QRSD: 90 T: 60 QT: 374 QTc: 439 Interpretive Statements SINUS RHYTHM INCOMPLETE RIGHT BUNDLE BRANCH BLOCK BORDERLINE ECG Compared to ECG 08/24/2023 11:19:36 No significant changes Electronically Signed On 08-29-2023 20:40:29 CDT by Hoang London D.O.
[2023-08-29 17:12] LABS: Basophils Percent Auto 0.2 % (0.2-1.2); Eosinophils Percent Auto 0.1 % (0-4.4); Hematocrit 35.2 % (37.0-47.0); Hemoglobin 12.3 g/dL (12.0-15.0); Immature Granulocyte Absolute 0.12 K/mm3 (0.00-0.031); Immature Granulocyte Percent A 0.7 % (0-0.5); Lymphocytes Absolute Auto 0.15 K/mm3 (0.9-3.2); Lymphocytes Percent Auto 0.9 % (18.3-44.2); Mean Corpuscular HGB Conc 34.9 g/dl (32-36); Mean Corpuscular Hemoglobin 31.6 pg (26-34); Mean Corpuscular Volume 90.5 fl (80-100); Mean Platelet Volume 9.2 fl (7.4-10.4); Monocytes Absolute Auto 0.4 K/mm3 (0.1-0.6); Monocytes Percent Auto 2.5 % (2.6-8.5); Neutrophils Absolute Auto 15.8 K/mm3 (1.3-6.7); Neutrophils Percent Auto 95.6 % (45.5-73.1); Platelet Count Result 174 k/mm3 (150-375); Red Blood Count 3.89 M/mm3 (4.2-5.4); Red Cell Distribution Width 12.4 % (11.5-14.5); White Blood Count 16.6 K/mm3 (4.5-10.0)
[2023-08-29 17:23] LABS: Alanine Aminotransferase 128 U/L (6-35); Albumin Level 3.9 g/dL (3.5-5.1); Alkaline Phosphatase 171 U/L (38-126); Anion Gap 7 mmol/L (4-12); Aspartate Amino Transferase 46 U/L (14-36); Bilirubin,Total 1.2 mg/dL (0.2-1.3); Blood Urea Nitrogen 23 mg/dL (7-17); Calcium 9.3 mg/dL (8.4-10.2); Carbon Dioxide 28 mmol/L (22-30); Chloride 100 mmol/L (98-107); Estimated CRCL calculation 43 ml/min; Estimated Glomerular Filt Rate > 60; Glucose 136 mg/dL (65-110); Potassium 3.6 mmol/L (3.4-5.0); Sodium 135 mmol/L (137-145)
[2023-08-29 17:27] LABS: INR 0.9; Prothrombin Time 12.8 Seconds (11.1-14.7)
[2023-08-29 17:28] LABS: Partial Thromboplastin Time 23.7 Seconds (22.3-36.8)
--- NOTE | 2023-08-29 17:31 | ED.AMS ---
HPI - Altered Mental Status General Chief Complaint: Altered Mental Status <JANET Gerber Last Filed: 08/29/23 21:25> Stated Complaint: fever <JANET Gerber Last Filed: 08/29/23 21:25> Time Seen by Provider: 08/29/23 17:08 <Alicia De Leon PA-C - Last Filed: 08/29/23 21:25> Source: patient and family <JANET Gerber Last Filed: 08/29/23 21:25> Mode of arrival: ambulatory <JANET Gerber Last Filed: 08/29/23 21:25> Limitations: dementia <JANET Gerber Last Filed: 08/29/23 21:25> History of Present Illness HPI narrative: This is an 83-year-old female that presents to the emergency department for evaluation of altered mental status. Patient's family brought her in for evaluation. Reporting fever today and recent admission for confusion with UTI. Patient reports a sore throat and a cough. Otherwise has no complaints. <JANET Gerber Last Filed: 08/29/23 21:25> Related Data Home Medications: Home Medications Medication Instructions Recorded Confirmed aripiprazole 2 mg tablet 2 mg PO HS 08/24/23 08/24/23 sertraline 25 mg tablet 25 mg PO DAILY 08/24/23 08/24/23 <JANET Gerber Last Filed: 08/29/23 21:25> Allergies/Adverse Reactions: Allergies Allergy/AdvReac Type Severity Reaction Status Date / Time Sulfa (Sulfonamide Allergy Unknown Unknown Verified 08/29/23 16:41 Antibiotics) <JANET Gerber Last Filed: 08/29/23 21:25> Review of Systems Review of Systems: CONSTITUTIONAL: Reports fever ENT: Reports congestion, sore throat CARDIOVASCULAR: Denies chest pain or edema. RESPIRATORY: Reports cough. Denies dyspnea. GASTROINTESTINAL: Denies abdominal pain, nausea, vomiting, or diarrhea. GENITOURINARY: Denies dysuria <JANET Gerber Last Filed: 08/29/23 21:25> All systems reviewed & are unremarkable except as noted in HPI and below <Alicia De Leon PA-C - Last Filed: 08/29/23 21:25> [facility] Past Medical History Medical History: Medical History (Updated 08/29/23 @ 21:23 by Alicia De Leon PA-C) Arthritis Dementia Depression <Alicia De Leon PA-C - Last Filed: 08/29/23 21:25> Family History Family History: Family History Sibling Family history of diabetes mellitus in first degree relative <Alicia De Leon PA-C - Last Filed: 08/29/23 21:25> Social History Social History: Social History Smoking status: Never smoker Alcohol intake: never Substance use: never Do You Feel Safe in your Home?: Yes Lack of Transportation: No Lack of Food: Never True Current Housing: I Have Housing Concerned About Future Housing: No Difficulty Paying Gas/Electric Bills: No Difficulty Paying for Meds: No Currently Unemployed: No Education: High School Diploma/GED Difficulty w/ Childcare or Family Care: No Spiritual care concerns: No <Alicia De Leon PA-C - Last Filed: 08/29/23 21:25> Exam Narrative: GENERAL: Elderly, well-nourished, and in no acute distress. HEAD: Normocephalic, atraumatic. EYES: PERRLA and EOMI. ENT: Nares clear, no rhinorrhea or epistaxis. Mucous membranes moist. Oropharynx without tonsillar hypertrophy exudate or other lesions. Bilateral cerumen impaction NECK: Supple. No adenopathy or masses. CHEST: Clear to auscultation. No respiratory distress. No wheezes rales or rhonchi HEART: Regular rate and rhythm. No murmur heard. Normal peripheral pulses. ABDOMEN: Soft, nontender, nondistended, normal active bowel sounds. EXTREMITIES: Normal range of motion. No edema. Strength equal in bilateral upper and lower extremities (5/5) SKIN: Warm, dry, no rash. NEURO: No focal deficits. Alert and oriented x3. CN II-XII grossly intact PSYCH: Normal mood and affect <Alicia De Leon PA-C - Last Filed: 08/29/23 21:2
[2023-08-29 18:04] LABS: Lactic Acid Reflex 1.2 mmol/L (0.7-2.0)
[2023-08-29 18:06] LABS: CRP 2.9 mg/dL (<1.0); Creatine Kinase 68 U/L (30-135); Lipase 61 U/L (23-300)
[2023-08-29 18:18] LABS: Strep Group A RT-PCR NOT DETECTED (Negative)
[2023-08-29 18:31] LABS: Appearance Urine Clear (Clear); Bacteria Urine None Seen /hpf; Bilirubin Urine Negative (Negative); Blood Urine Negative (Negative); Color Urine Dark Yellow (Yellow); Glucose Urine UA Negative (Negative); Ketones Urine Negative (Negative); Leukocyte Esterase Ur Trace LEU/UL (Negative); Nitrate Urine Negative (Negative); Non Pathogenic Casts 0-2; Protein Urine Negative (Negative); RBC Urine 0-2 /hpf (0-2); Specific Grav Ur 1.018 (1.001-1.035); Squamous Epithelial Cell Urine None Seen /hpf (Few); WBC Urine 0-5 /hpf (0-3)
[2023-08-29 18:32] LABS: Influenza A QL RT-PCR Negative (Negative); Influenza B QL RT-PCR Negative (Negative); RSV RNA, RT-PCR Negative (Negative); SARS-CoV-2 RNA PCR Negative (Negative)
[2023-08-29 18:33] LABS: Add Urine Microscopic? YES
--- NOTE | 2023-08-29 19:59 | PM.IMHP ---
H&P: HPI History of Present Illness Date/Time: 08/29/23 19:59 Chief Complaint: ams Narrative: This is an 83-year-old female with past medical history significant for dementia, patient was brought to the emergency room by family members due to concerns of patient unable to care for herself patient is confused does not know why she is in the emergency room she is only oriented to self. Patient is been admitted for further evaluation management and treatment. EXAMINATION: CT brain wo con DATE: 08/29/2023 17:23 INDICATION: Altered mental status. TECHNIQUE: Computed tomography (CT) of the head was performed without intravenous contrast. The mA was adjusted according to patient size. Iterative reconstruction technique was employed. The dose-length product was 605.33 mGy-cm. COMPARISON: Head CT 08/25/23 FINDINGS: There is no intracranial hemorrhage, acute infarction, or abnormal intracranial mass lesion. The ventricles are normal in size. The ventricles are normal in size. The orbits are normal. There is mild mucosal thickening in the paranasal sinuses. There is a small right mastoid effusion. IMPRESSION: 1. Normal brain. EXAMINATION: XR chest 2V DATE: 08/29/2023 17:46 INDICATION: Fever and cough. TECHNIQUE: Frontal and lateral views of the chest were obtained. COMPARISON: Chest single view 08/24/23, CT abdomen and pelvis 08/24/23 FINDINGS: There are Elvin B-lines, consistent mild pulmonary edema. No pleural effusion or pneumothorax. The heart size is normal. IMPRESSION: 1. Mild pulmonary edema. EXAMINATION: CT abdomen pelvis w con DATE: 08/29/2023 19:09 INDICATION: Fever. Leukocytosis. Transaminitis. Urinary tract infection. TECHNIQUE: Computed tomography (CT) of the abdomen and pelvis was performed with 100 mL Omnipaque 350 intravenous contrast. Automated exposure control and iterative reconstruction technique were employed. The dose-length product was 184.06 mGy-cm. COMPARISON: CT abdomen and pelvis 08/24/23 FINDINGS: The visualized portions of the lung bases demonstrate mild atelectasis. No pleural effusion. The heart size is normal. No pericardial effusion. The liver, gallbladder, spleen, pancreas, adrenal glands, and right kidney are normal. There is a 4 mm cyst in left kidney. There are no dilated loops of bowel. There is diverticulosis of the colon without evidence of diverticulitis. The appendix is not visualized. Aortic atherosclerosis is noted. There are no pathologically enlarged lymph nodes. There is no free intraperitoneal fluid. There is mild thoracic and lumbar spondylosis. IMPRESSION: 1. No etiology for the patient's symptoms. Review of Systems Review of Systems: ROS unobtainable: Yes unobtainable due to mental status PMFSH Past Medical History Medical History (Updated 08/29/23 @ 21:23 by Alicia De Leon PA-C) Arthritis Dementia Depression Family History Family History Sibling Family history of diabetes mellitus in first degree relative Social History Social History Smoking status: Never smoker Alcohol intake: never Substance use: never Do You Feel Safe in your Home?: Yes Lack of Transportation: No Lack of Food: Never True Current Housing: I Have Housing Concerned About Future Housing: No Difficulty Paying Gas/Electric Bills: No Difficulty Paying for Meds: No Currently Unemployed: No Education: High School Diploma/GED Difficulty w/ Childcare or Family Care: No Spiritual care concerns: No Meds Home Medications and Allergies Home Medications Medication Instructions Recorded Confirmed Type aripiprazole 2 mg tablet 2 mg PO HS 08/24/23 08/29/23 History sertraline 25 mg tablet 25 mg PO DAILY 08/24/23 08/29/23 History amlodipine 10 mg tablet 10 mg PO DAILY 30 days #30 tabs 08/27/23 08/29/23 Rx Allergies Allergy/AdvReac Type Severity
[2023-08-30 06:00] VITALS: BP 104/54; PULSE 84; RESP 20; TEMP 36.4; O2SAT 95
[2023-08-30 10:30] LABS: Basophils Percent Auto 0.4 % (0.2-1.2); Eosinophils Absolute Auto 0.3 K/mm3 (0-0.3); Eosinophils Percent Auto 3.3 % (0-4.4); Hemoglobin 11.7 g/dL (12.0-15.0); Immature Granulocyte Absolute 0.04 K/mm3 (0.00-0.031); Immature Granulocyte Percent A 0.4 % (0-0.5); Lymphocytes Percent Auto 3.2 % (18.3-44.2); Mean Corpuscular HGB Conc 33.4 g/dl (32-36); Mean Corpuscular Hemoglobin 31.4 pg (26-34); Mean Corpuscular Volume 93.8 fl (80-100); Mean Platelet Volume 9.9 fl (7.4-10.4); Monocytes Absolute Auto 0.3 K/mm3 (0.1-0.6); Monocytes Percent Auto 3.1 % (2.6-8.5); Neutrophils Absolute Auto 8.4 K/mm3 (1.3-6.7); Neutrophils Percent Auto 89.6 % (45.5-73.1); Platelet Count Result 183 k/mm3 (150-375); Red Blood Count 3.73 M/mm3 (4.2-5.4); Red Cell Distribution Width 12.4 % (11.5-14.5); White Blood Count 9.4 K/mm3 (4.5-10.0)
[2023-08-30 10:41] LABS: Alanine Aminotransferase 93 U/L (6-35); Albumin Level 3.7 g/dL (3.5-5.1); Alkaline Phosphatase 138 U/L (38-126); Anion Gap 5 mmol/L (4-12); Aspartate Amino Transferase 30 U/L (14-36); Bilirubin,Total 1.2 mg/dL (0.2-1.3); Blood Urea Nitrogen 23 mg/dL (7-17); Calcium 9.2 mg/dL (8.4-10.2); Carbon Dioxide 32 mmol/L (22-30); Chloride 100 mmol/L (98-107); Estimated CRCL calculation 38 ml/min; Estimated Glomerular Filt Rate > 60; Glucose 144 mg/dL (65-110); Potassium 3.5 mmol/L (3.4-5.0); Sodium 137 mmol/L (137-145)
--- NOTE | 2023-08-30 11:49 | PM.IMPN ---
Progress Note: A&P Assessment and Plan (1) Leukocytosis: Qualifiers: Leukocytosis type: unspecified Qualified Code(s): D72.829 - Elevated white blood cell count, unspecified Code(s): D72.829 - Elevated white blood cell count, unspecified Status: Acute Assessment and Plan: WBCs 16.6 on arrival currently 9.4 No signs or symptoms of infection including fever Chest x-ray shows mild pulmonary edema CT abdomen and pelvis with no acute findings UA is negative for any infection Resolved at this time (2) Essential hypertension: Code(s): I10 - Essential (primary) hypertension Status: Acute Assessment and Plan: Current blood pressure 122/55 Continued amlodipine Trend BP Adjust therapy (3) Dementia: Code(s): F03.90 - Unspecified dementia, unspecified severity, without behavioral disturbance, psychotic disturbance, mood disturbance, and anxiety Status: Chronic Assessment and Plan: MMSE score was 14 Continue Abilify and Zoloft Trend mood and mental status (4) Elevated liver enzymes: Code(s): R74.8 - Abnormal levels of other serum enzymes Status: Acute Assessment and Plan: Slightly elevated at AST/ALT 30/93 Continue to trend Labs in the am Plan I had a long decision with the family about current plan of care. There were under the impression that the patient is discharging today however they are trying to get the patient into an assisted living. All the paperwork has been filled out for the assisted living awaiting assisted living acceptance. Patient is currently doing well she denies any current issues. Spoke with family for greater than 20 minutes about current plan of care. Patient will most likely discharge on Saturday Time Spent With Patient Time: 58 minutes Time with patient: Greater than 35 minutes Subjective Date/time seen: 08/30/23 1015 Interval history: 08/29/23 19:59 This is an 83-year-old female with past medical history significant for dementia, patient was brought to the emergency room by family members due to concerns of patient unable to care for herself patient is confused does not know why she is in the emergency room she is only oriented to self. Patient is been admitted for further evaluation management and treatment. 08/30/2023 1015 Patient is doing well upstairs. She currently denies any chest pain, shortness a breath, nausea, vomiting, diarrhea constipation. She was concerned that her right arm is warmer than her lab to home however she does have a nice bruise. Filled out paperwork for the patient to go to assisted living await for further instruction from the assisted living for acceptance. Review of Systems Review of Systems: All systems reviewed & are unremarkable except as noted in HPI and below Exam Narrative: General: well-nourished, well-appearing 83-year-old female, sitting up in bed, comfortable, NARD Neuro: awake, alert and oriented x2, speech clear, no focal neuro deficits noted HEENMT: normocephalic, atraumatic, EOMI, sclerae anicteric, moist oral mucosa Respiratory: Clear to auscultation bilaterally without crackles, rhonchi or wheezes, nonlabored breathing Cardio: regular rate, regular rhythm with S1-S2 Abdomen: nondistended, normoactive bowel sounds, soft, nontender to palpation Extremities: no edema, erythema, or tenderness to palpation, DP pulses 2+ bilaterally Skin: no rashes or lesions, warm and dry Psych: appropriate mood and affect, judgment and insight intact Objective Data Vital Signs Vital Signs: Vital Signs - 24 hr 08/29/23 16:36 08/29/23 18:05 08/29/23 18:05 Temperature 98.5 F Pulse Rate 83 78 Respiratory Rate 24 H Blood Pressure 130/67 Pulse Oximetry 97 Oxygen Delivery Room Air Room Air 08/29/23 19:35 08/29/23 19:36 08/29/23 19:45 Temperature Pulse Rate 83 79 76 Respiratory Rate
[2023-08-30] MEDS: LACTATED RINGERS 1,000 ML 999 ML IV CONT (12:02)
[2023-08-30] MEDS: SERTRALINE HCL 25 MG TABLET PO (12:02)
[2023-08-30 12:38] VITALS: BMI 21.2
[2023-08-30 13:47] VITALS: BP 122/55; PULSE 74; RESP 20; TEMP 36.4; O2SAT 100
[2023-08-30 14:00] VITALS: BP 122/55; PULSE 74; RESP 20; TEMP 36.4; O2SAT 100
--- NOTE | 2023-08-30 14:45 | PM.DS ---
DS: Admitting Diagnosis Discharge Date 08/30/23 1030 Admitting Diagnosis Altered mental status DS: Discharge Diagnosis Discharge Diagnosis (1) Leukocytosis: Qualifiers: Leukocytosis type: unspecified Qualified Code(s): D72.829 - Elevated white blood cell count, unspecified Code(s): D72.829 - Elevated white blood cell count, unspecified Status: Acute Assessment and Plan: WBCs 16.6 on arrival currently 9.4 No signs or symptoms of infection including fever Chest x-ray shows mild pulmonary edema CT abdomen and pelvis with no acute findings UA is negative for any infection Resolved at this time (2) Essential hypertension: Code(s): I10 - Essential (primary) hypertension Status: Acute Assessment and Plan: Current blood pressure 122/55 Continue current medications (3) Dementia: Code(s): F03.90 - Unspecified dementia, unspecified severity, without behavioral disturbance, psychotic disturbance, mood disturbance, and anxiety Status: Chronic Assessment and Plan: Most likely the cause of the altered mental status continue aripiprazole continue sertraline (4) Elevated liver enzymes: Code(s): R74.8 - Abnormal levels of other serum enzymes Status: Acute Assessment and Plan: continue to monitor DS: Summary Hospital Course Hospital Course: Patient is an 83-year-old female with a past medical history of dementia and hypertension was brought to the ED for altered mental status. Patient had baseline is confused. Patient was recently discharged from the hospital for UTI which was treated. CT of the head showed no acute findings. X-ray of the chest showed mild pulmonary edema. CT abdomen pelvis showed no acute findings. Currently patient is doing well she is walking back and forth to the bathroom she is able to feed herself. She is very forgetful as she does not know the month however she does know the year however it seems to be more memorized. Currently patient is stable for discharge medically per labs and vital signs. Upon arrival to the ED patient did have a notable elevation of white blood cells at 16.6 which is currently down to 9.4. All other labs and vital signs are stable. The enzymes slightly elevated however trending down and have been elevated since last admission. UA was also negative for any kind of infection. Did fill out the paperwork for patient to go to assisted living however it was decided that the patient will go home with her son and he would place her in assisted living as indicated. Mini-mental status exam was done and did show score 14. Status at Discharge Functional status at discharge: independent ambulation Overall status at discharge: patient is progressing back to baseline Time Spent with Patient Time attestation: Total time spent providing and/or coordinating discharge services:43 minutes Time spent: Greater than 30 minutes Specific discharge activities: Diagnostic testing, chart review, developing a treatment plan, education, care coordination documentation, physical exam, result review Exam Narrative: General: well-nourished, well-appearing 83-year-old female, sitting up in bed, comfortable, NARD Neuro: awake, alert and oriented x2, speech clear, no focal neuro deficits noted HEENMT: normocephalic, atraumatic, EOMI, sclerae anicteric, moist oral mucosa Respiratory: Clear to auscultation bilaterally without crackles, rhonchi or wheezes, nonlabored breathing Cardio: regular rate, regular rhythm with S1-S2 Abdomen: nondistended, normoactive bowel sounds, soft, nontender to palpation Extremities: no edema, erythema, or tenderness to palpation, DP pulses 2+ bilaterally Skin: no rashes or lesions, warm and dry Psych: appropriate mood and affect, judgment and insight intact DS: Data Data Completed and Pending Labs on day of discharge: Labs from last 2
--- NOTE | 2023-08-30 15:00 | PC.NURSE ---
Family members voiced concerns regarding plan for discharge and had multiple questions related to medical care. I contacted Silvino Leiva and conference call held with deon Vicente,myself, and Silvino Leiva- Provider. All questions were answered to their satisfaction and acute care assistant will follow up with POA completion today.
--- NOTE | 2023-08-30 16:13 | PC.NURSE ---
PATIENCE paperwork completed with [employer] and copy left at nurse's station for nephew. Message left for nephew to advise of completion and that copy was available for him to picker box operator.
[2023-08-30] MEDS: ARIPiprazole 2 MG TABLET PO (19:56)
[2023-08-30 21:46] VITALS: BP 126/56; PULSE 68; RESP 14; TEMP 36.7; O2SAT 97
[2023-08-31 06:00] VITALS: BP 145/65; PULSE 76; RESP 12; TEMP 36.6; O2SAT 96
[2023-08-31] MEDS: SERTRALINE HCL 25 MG TABLET PO (09:52)
[2023-08-31] MEDS: amLODIPine BESYLATE 10 MG TABLET PO (09:52)
--- NOTE | 2023-08-31 11:12 | PM.IMPN ---
Progress Note: A&P Assessment and Plan (1) Leukocytosis: Qualifiers: Leukocytosis type: unspecified Qualified Code(s): D72.829 - Elevated white blood cell count, unspecified Code(s): D72.829 - Elevated white blood cell count, unspecified Status: Acute Assessment and Plan: Resolved Initially WBCs were 16.6 -UA is negative for any infection -CXR reveals mild pulmonary edema (2) Essential hypertension: Code(s): I10 - Essential (primary) hypertension Status: Acute Assessment and Plan: -chronic, controlled -continue home medication amlodipine -check vitals q.4 hours (3) Dementia: Code(s): F03.90 - Unspecified dementia, unspecified severity, without behavioral disturbance, psychotic disturbance, mood disturbance, and anxiety Status: Chronic Assessment and Plan: -Chronic -MMSE score was 14 -continue home medication Abilify and Zoloft -initiate safety/fall precautions (4) Elevated liver enzymes: Code(s): R74.8 - Abnormal levels of other serum enzymes Status: Acute Assessment and Plan: Elevated AST/ALT -recheck CMP in the a.m. Plan Continue home medications: VTE Prophylaxis: DIET: Anticipated hospital stay: > 2 days Code Status: Full code Time Spent With Patient Time with patient: 25 - 35 minutes Subjective Date/time seen: 08/31/23 11:12 Interval history: This is an 83-year-old female with past medical history significant for dementia, patient was brought to the emergency room by family members due to concerns of patient unable to care for herself patient is confused does not know why she is in the emergency room she is only oriented to self. Patient has been admitted for further evaluation management and treatment. 08/31/2023 1030 Ms. Horton is resting in bed this morning, pleasantly confused, she denies any chest pain, shortness a breath, nausea, vomiting, diarrhea constipation. Continue plan to await for placement to assisted living facility Exam Narrative: General: A well-developed, nontoxic-appearing female sitting up in bed. In no acute distress pleasantly confused HEENT: PERRL, EOMI. Oral mucosa moist. Neck: Supple. No midline cervical tenderness. Respiratory: Respirations are non- labored and lungs are clear to auscultation bilaterally. Cardiovascular: Regular rate and rhythm with S1-S2. Gastrointestinal: Abdomen is soft, non-tender, and non-distended with positive bowel sounds. Skin: Warm and dry. No rash or lesions on limited exam. Extremities: No cyanosis, clubbing, or edema. Radial and pedal pulses intact. Neurological: Alert and oriented. Cranial nerves 2-12 are grossly intact. No gross focal deficits to casual conversation. Psychiatric: Pleasant and cooperative with normal mood and affect. Confused Objective Data Vital Signs Vital Signs: Vital Signs - 24 hr 08/30/23 13:47 08/30/23 14:00 08/30/23 20:00 Temperature 97.5 F L 97.5 F L Pulse Rate 74 74 Respiratory Rate 20 20 Blood Pressure 122/55 L 122/55 L Pulse Oximetry 100 100 Oxygen Delivery Room Air 08/30/23 21:46 08/31/23 06:00 Temperature 98.1 F 97.9 F Pulse Rate 68 76 Respiratory Rate 14 12 Blood Pressure 126/56 L 145/65 H Pulse Oximetry 97 96 Oxygen Delivery Intake/Output Intake/Output: Intake & Output 08/28/23 08/29/23 08/30/23 08/31/23 23:59 23:59 23:59 23:59 Intake Total 2370 910 Output Total 100 0 Balance -100 2370 910 Meds/Results Medications: Active Medications Generic Name Dose Route Start Last Admin Trade Name Freq PRN Reason Stop Dose Admin Acetaminophen 650 mg 08/29/23 20:03 Acetaminophen 325 Mg Tablet PO Q4H PRN Mild Pain (1-3) or Fever Amlodipine Besylate 10 mg 08/30/23 09:00 08/31/23 09:52 Amlodipine Besylate 10 Mg Tablet PO 10 mg DAILY LAMAR Administration Aripiprazole 2 mg 08/30/23 21:00 08/30/23 19:56 Aripiprazole 2 Mg Tablet
[2023-08-31 14:00] VITALS: BP 123/62; PULSE 74; RESP 20; TEMP 36.4; O2SAT 98
[2023-08-31] MEDS: ARIPiprazole 2 MG TABLET PO (20:29)
[2023-08-31 21:55] VITALS: BP 130/66; PULSE 80; RESP 16; TEMP 36.3; O2SAT 97
[2023-09-01 06:00] VITALS: BP 138/68; PULSE 79; RESP 16; TEMP 36.3; O2SAT 97
--- NOTE | 2023-09-01 07:31 | PM.IMPN ---
Progress Note: A&P Assessment and Plan (1) Leukocytosis: Qualifiers: Leukocytosis type: unspecified Qualified Code(s): D72.829 - Elevated white blood cell count, unspecified Code(s): D72.829 - Elevated white blood cell count, unspecified Status: Acute Assessment and Plan: WBCs 16.6 on admission. Currently 4.9 on am labs. No signs of active infection. - Patient remains afebrile - UA non concerning for UTI. - Chest XR: mild pulmonary edema - CT abdomen/pelvis: No acute findings - Covid/Flu/RSV negative Resolved. (2) Essential hypertension: Code(s): I10 - Essential (primary) hypertension Status: Acute Assessment and Plan: Chronic, well controlled on home medications. - Amlodipine 10 mg daily - Monitor (3) Dementia: Code(s): F03.90 - Unspecified dementia, unspecified severity, without behavioral disturbance, psychotic disturbance, mood disturbance, and anxiety Status: Chronic Assessment and Plan: Per chart review MMSE score 14/30. - Abilify 2 mg daily - Sertraline 25 mg daily - Continue to monitor (4) Elevated liver enzymes: Code(s): R74.8 - Abnormal levels of other serum enzymes Status: Acute Assessment and Plan: Tot bili WNL. LFTs slightly elevated with AST 46, ALT 128, and alk phos 171 on admission. - AST 56, ALT 120, Alk phos 255 on am labs - Benign abdominal exam - CT abdomen/pelvis: No acute findings - Hepatitis panel 08/24: negative - Continue to trend Time Spent With Patient Time with patient: 25 - 35 minutes Subjective Date/time seen: 09/01/23 07:31 Interval history: 83 year old female with past medical history of dementia, arthritis, and depression presents to the hospital by family members for concerns that patient is unable to care for herself. Per care coordinations note on 08/29 family is working on getting patient placed at [facility] in [place]. Patient is pleasant lying comfortably in bed. She remains AOx2 (baseline). She denies chest pain, shortness of breath, nausea/vomiting, abdominal pain, and changes in bowel/bladder. She has been ambulating about her room with nursing. She denies increased weakness and dizziness/lightheadedness at that time. Patient remains inpatient with likely discharge on Saturday to the assisted living. Review of Systems Review of Systems: All systems reviewed & are unremarkable except as noted in HPI and below Exam Narrative: AF HR 79 RR 16 SpO2 97 BP 138/68 General: female in no acute respiratory distress who is nontoxic appearing, lying semi recumbent in bed. HEENT: Normocephalic. Atraumatic. Pupils equal round reactive to light. Extraocular movement intact. No facial asymmetry. Chest: Lungs are clear to auscultation bilaterally. No wheezes or crackles. CV: Heart was regular rate and rhythm. S1-S2. No murmurs, gallops, or rubs. Abd: Abdomen was soft. Nontender. Nondistended. Positive bowel sounds. No organomegaly or masses. Ext: No clubbing, cyanosis, or edema. 2+ DP pulses bilaterally. Neuro: Patient is alert and oriented x2. Cranial nerves 2-12 are intact. Speech is clear. Psych: Normal mood and affect. Patient is pleasant and cooperative. Objective Data Vital Signs Vital Signs: Vital Signs - 24 hr 08/31/23 14:00 08/31/23 08:00 08/31/23 21:55 Temperature 97.5 F L 97.4 F L Pulse Rate 74 80 Respiratory Rate 20 16 Blood Pressure 123/62 130/66 Pulse Oximetry 98 97 Oxygen Delivery Room Air 08/31/23 20:00 09/01/23 06:00 Temperature 97.4 F L Pulse Rate 79 Respiratory Rate 16 Blood Pressure 138/68 Pulse Oximetry 97 Oxygen Delivery Room Air Intake/Output Intake/Output: Intake & Output 08/29/23 08/30/23 08/31/23 09/01/23 23:59 23:59 23:59 23:59 Intake Total 2370 1760 120 Output Total 100 0 Balance -100 2370 1760 120 Meds/Results Medications: Active Medications Generic Name Dose Route Sta
[2023-09-01 08:08] LABS: Basophils Percent Auto 0.6 % (0.2-1.2); Eosinophils Absolute Auto 0.3 K/mm3 (0-0.3); Hematocrit 38.3 % (37.0-47.0); Hemoglobin 12.6 g/dL (12.0-15.0); Immature Granulocyte Absolute 0.05 K/mm3 (0.00-0.031); Lymphocytes Absolute Auto 0.62 K/mm3 (0.9-3.2); Lymphocytes Percent Auto 12.7 % (18.3-44.2); Mean Corpuscular HGB Conc 32.9 g/dl (32-36); Mean Corpuscular Hemoglobin 30.7 pg (26-34); Mean Corpuscular Volume 93.4 fl (80-100); Mean Platelet Volume 9.3 fl (7.4-10.4); Monocytes Absolute Auto 0.4 K/mm3 (0.1-0.6); Monocytes Percent Auto 8.6 % (2.6-8.5); Neutrophils Absolute Auto 3.5 K/mm3 (1.3-6.7); Neutrophils Percent Auto 71.1 % (45.5-73.1); Platelet Count Result 236 k/mm3 (150-375); Red Cell Distribution Width 12.4 % (11.5-14.5); White Blood Count 4.9 K/mm3 (4.5-10.0)
[2023-09-01 08:21] LABS: Alanine Aminotransferase 120 U/L (6-35); Albumin Level 3.9 g/dL (3.5-5.1); Alkaline Phosphatase 255 U/L (38-126); Anion Gap 7 mmol/L (4-12); Aspartate Amino Transferase 56 U/L (14-36); Bilirubin,Total 0.5 mg/dL (0.2-1.3); Blood Urea Nitrogen 13 mg/dL (7-17); Calcium 9.2 mg/dL (8.4-10.2); Carbon Dioxide 31 mmol/L (22-30); Chloride 102 mmol/L (98-107); Estimated CRCL calculation 43 ml/min; Estimated Glomerular Filt Rate > 60; Glucose 106 mg/dL (65-110); Potassium 3.5 mmol/L (3.4-5.0); Sodium 140 mmol/L (137-145)
[2023-09-01] MEDS: SERTRALINE HCL 25 MG TABLET PO (09:44)
[2023-09-01] MEDS: amLODIPine BESYLATE 10 MG TABLET PO (09:44)
[2023-09-01 14:00] VITALS: BP 129/58; PULSE 77; RESP 18; TEMP 36.7; O2SAT 97
[2023-09-01] MEDS: ARIPiprazole 2 MG TABLET PO (19:50)
[2023-09-01 21:22] VITALS: BP 131/63; PULSE 83; RESP 16; TEMP 36.3; O2SAT 97
[2023-09-02 05:41] VITALS: BP 130/63; PULSE 79; RESP 16; TEMP 36.6; O2SAT 98
[2023-09-02 08:57] LABS: Basophils Percent Auto 0.8 % (0.2-1.2); Eosinophils Absolute Auto 0.3 K/mm3 (0-0.3); Eosinophils Percent Auto 5.1 % (0-4.4); Hematocrit 38.8 % (37.0-47.0); Hemoglobin 13.1 g/dL (12.0-15.0); Immature Granulocyte Absolute 0.07 K/mm3 (0.00-0.031); Immature Granulocyte Percent A 1.4 % (0-0.5); Lymphocytes Absolute Auto 0.89 K/mm3 (0.9-3.2); Lymphocytes Percent Auto 17.6 % (18.3-44.2); Mean Corpuscular HGB Conc 33.8 g/dl (32-36); Mean Corpuscular Hemoglobin 31.5 pg (26-34); Mean Corpuscular Volume 93.3 fl (80-100); Monocytes Absolute Auto 0.4 K/mm3 (0.1-0.6); Monocytes Percent Auto 7.5 % (2.6-8.5); Neutrophils Absolute Auto 3.4 K/mm3 (1.3-6.7); Neutrophils Percent Auto 67.6 % (45.5-73.1); Platelet Count Result 269 k/mm3 (150-375); Red Blood Count 4.16 M/mm3 (4.2-5.4); Red Cell Distribution Width 12.6 % (11.5-14.5); White Blood Count 5.1 K/mm3 (4.5-10.0)
[2023-09-02 09:02] LABS: Alanine Aminotransferase 120 U/L (6-35); Alkaline Phosphatase 255 U/L (38-126); Anion Gap 6 mmol/L (4-12); Aspartate Amino Transferase 60 U/L (14-36); Bilirubin,Total 0.6 mg/dL (0.2-1.3); Blood Urea Nitrogen 10 mg/dL (7-17); Calcium 9.5 mg/dL (8.4-10.2); Carbon Dioxide 33 mmol/L (22-30); Chloride 100 mmol/L (98-107); Estimated CRCL calculation 43 ml/min; Estimated Glomerular Filt Rate > 60; Glucose 119 mg/dL (65-110); Potassium 4.1 mmol/L (3.4-5.0); Sodium 139 mmol/L (137-145)
[2023-09-02] MEDS: SERTRALINE HCL 25 MG TABLET PO (09:23)
[2023-09-02] MEDS: amLODIPine BESYLATE 10 MG TABLET PO (09:23)
--- NOTE | 2023-09-02 11:40 | PC.NURSE ---
Addendum entered by Krystyna Brush RN 09/02/23 14:11: UPDATE: 1411 Spoke with nephew. He can be here about 1600 to take his aunt to [facility]. Discharge paper will be discussed at that time. Original Note: Patient sitting in bedside chair. Patient is calm and cooperative. Patient educated to only remember one thing and that is to press the red button on the call light whenever she needs anything. Explained it is about keeping her safe. She has been using the call light ever since. Patient hopes to go home today. SBA to the bathroom and patient wanted to get back in bed. Call kept in patients view and education provided again.
--- NOTE | 2023-09-02 13:35 | PM.DS ---
DS: Admitting Diagnosis Discharge Date 09/02/2023 Admitting Diagnosis Leukocytosis Essential hypertension Dementia Elevated liver enzymes DS: Discharge Diagnosis Discharge Diagnosis (1) Leukocytosis: Qualifiers: Leukocytosis type: unspecified Qualified Code(s): D72.829 - Elevated white blood cell count, unspecified Code(s): D72.829 - Elevated white blood cell count, unspecified Status: Acute (2) Essential hypertension: Code(s): I10 - Essential (primary) hypertension Status: Acute (3) Dementia: Code(s): F03.90 - Unspecified dementia, unspecified severity, without behavioral disturbance, psychotic disturbance, mood disturbance, and anxiety Status: Chronic (4) Elevated liver enzymes: Code(s): R74.8 - Abnormal levels of other serum enzymes Status: Acute DS: Summary Hospital Course Reason for hospitalization: Leukocytosis Essential hypertension Dementia Elevated liver enzymes Hospital Course: 83 year old female with past medical history of dementia, arthritis, and depression presents to the hospital by family members for concerns that patient is unable to care for herself. Per care coordinations note on 08/29 family is working on getting patient placed at [facility] in [place]. On admission patient has a leukocytosis of 16.6. She remained afebrile. A UA and chest XR were nonconcerning for infection. A CT abdomen/pelvis showed no acute findings. Patients covid/flu/rsv was negative. Throughout admission patients WBC continued to downtrend and returned to normal limits. LFTs were slightly elevated, however abdominal exam was benign and there was no acute findings on imaging. Hepatitis panel was negative. Patient will continue to have this followed in the outpatient setting. Patient discharged home with family today and will report to her assisted living in the morning. Patient and family are agreeable to discharge. Patient is to follow up with her PCP in 1 week. Status at Discharge Functional status at discharge: independent ambulation Time Spent with Patient Time attestation: Total time spent providing and/or coordinating discharge services: Time spent: Greater than 30 minutes Exam Narrative: AF HR 72 RR 14 SpO2 100 BP 112/64 General: female in no acute respiratory distress who is nontoxic appearing, sitting up in chair. Patient able to ambulate throughout room without assistance. HEENT: Normocephalic. Atraumatic. Extraocular movement intact. No facial asymmetry. Chest: Lungs are clear to auscultation bilaterally. No wheezes or crackles. CV: Heart was regular rate and rhythm. S1-S2. No murmurs, gallops, or rubs. Abd: Abdomen was soft. Nontender. Nondistended. Positive bowel sounds. No organomegaly or masses. Ext: No clubbing, cyanosis, or edema. 2+ DP pulses bilaterally. Neuro: Patient is alert and oriented x2. Cranial nerves 2-12 are intact. Speech is clear. Psych: Normal mood and affect. Patient is pleasant and cooperative. DS: Data Data Completed and Pending Completed studies during hospitalization: Abdomen/pelvis CT Chest XR Head CT Labs on day of discharge: Labs from last 24 hours 09/02/23 08:41 WBC 5.1 RBC 4.16 L Hgb 13.1 Hct 38.8 MCV 93.3 MCH 31.5 MCHC 33.8 RDW 12.6 Plt Count 269 MPV 9.0 Immature Gran % (Auto) 1.4 H Neut % (Auto) 67.6 Lymph % (Auto) 17.6 L [place] % (Auto) 7.5 Eos % (Auto) 5.1 H Baso % (Auto) 0.8 Lymph # (Auto) 0.89 L [place] # (Auto) 0.4 Eos # (Auto) 0.3 Baso # (Auto) 0.0 Abs Immat Gran (auto) 0.07 H Absolute Neuts (auto) 3.4 Absolute Nucleated RBC 0.000 Nucleated RBC % 0.0 Sodium 139 Potassium 4.1 Chloride 100 Carbon Dioxide 33 H Anion Gap 6 BUN 10 Creatinine 0.70 Estim Creat Clear Calc 43 Estimated GFR > 60 Glucose 119 H Calcium 9.5 Total Bilirubin 0.6 AST 60 H ALT 120 H Alkaline Phosphatase 255 H Total Protein 7.0 Albumin 4.0 Dis
[2023-09-02 14:00] VITALS: BP 112/64; PULSE 72; RESP 14; TEMP 36.9; O2SAT 100
== END 2023-09-02 15:45 | DRG 884 ==
LOC: ANHED 19:59 → ANH3MEDSUR 20:44
PROVIDERS: Emergency Medicine; Nurse Practitioner; Admitting Provider Internal Medicine; Emergency Provider Physician Assistant; PCP Internal Medicine; Visit Provider Student in an Organized Health Care Education/Training Program
DX: F03.90 Unspecified dementia, unspecified severity, without behavioral disturbance, psychotic disturbance, mood disturbance, and anxiety (principal); D72.829 Elevated white blood cell count, unspecified; I10 Essential (primary) hypertension; M19.90 Unspecified osteoarthritis, unspecified site; R74.8 Abnormal levels of other serum enzymes; F32.A Depression, unspecified; Z20.822 Contact with and (suspected) exposure to COVID-19
CPT/HCPCS: 36415; 70450; 71046; 74177; 80053; 81001; 82550; 83605; 83690; 85025; 85610; 85730; 86140; 87637; 87651; 93005; 96360; 99285; A9270; G0378; J7120; Q9967

== ENCOUNTER 2023-10-28 15:42 | Outpatient (CLI) | payer MEDICARE, SELFPAY ==
[2023-10-28 16:23] LABS: Basophils Percent Auto 0.6 % (0.2-1.2); Eosinophils Absolute Auto 0.1 K/mm3 (0-0.3); Eosinophils Percent Auto 1.6 % (0-4.4); Hematocrit 41.3 % (37.0-47.0); Hemoglobin 14.1 g/dL (12.0-15.0); Immature Granulocyte Absolute 0.02 K/mm3 (0.00-0.031); Immature Granulocyte Percent A 0.3 % (0-0.5); Lymphocytes Absolute Auto 0.96 K/mm3 (0.9-3.2); Lymphocytes Percent Auto 13.8 % (18.3-44.2); Mean Corpuscular HGB Conc 34.1 g/dl (32-36); Mean Corpuscular Hemoglobin 31.9 pg (26-34); Mean Corpuscular Volume 93.4 fl (80-100); Mean Platelet Volume 9.4 fl (7.4-10.4); Monocytes Absolute Auto 0.6 K/mm3 (0.1-0.6); Monocytes Percent Auto 8.3 % (2.6-8.5); Neutrophils Absolute Auto 5.3 K/mm3 (1.3-6.7); Neutrophils Percent Auto 75.4 % (45.5-73.1); Platelet Count Result 171 k/mm3 (150-375); Red Blood Count 4.42 M/mm3 (4.2-5.4); Red Cell Distribution Width 13.1 % (11.5-14.5)
[2023-10-28 16:40] LABS: Alanine Aminotransferase 50 U/L (6-35); Albumin Level 4.5 g/dL (3.5-5.1); Alkaline Phosphatase 158 U/L (38-126); Anion Gap 7 mmol/L (4-12); Aspartate Amino Transferase 44 U/L (14-36); Bilirubin,Total 0.7 mg/dL (0.2-1.3); Blood Urea Nitrogen 16 mg/dL (7-17); Calcium 9.6 mg/dL (8.4-10.2); Carbon Dioxide 33 mmol/L (22-30); Chloride 96 mmol/L (98-107); Estimated Glomerular Filt Rate > 60; Glucose 104 mg/dL (65-110); Potassium 3.7 mmol/L (3.4-5.0); Sodium 136 mmol/L (137-145)
[2023-10-28 17:14] LABS: Hepatitis B Surface Antigen Negative (Negative)
[2023-10-28 17:20] LABS: HAV RESULT Negative (Negative); Hepatitis B Core IgM Result Negative (Negative)
[2023-10-28 17:32] LABS: Hepatitis C Virus Antibody Negative (Negative)
== END 2023-10-28 15:43 | disposition home or self-care (01) ==
LOC: ANHLAB 15:49
PROVIDERS: PCP Internal Medicine; Visit Provider Internal Medicine
DX: R94.5 Abnormal results of liver function studies (principal)
CPT/HCPCS: 36415; 80053; 80074; 85025

== ENCOUNTER 2024-02-20 17:59 | Emergency (ER) | payer MEDICARE, SELFPAY ==
--- NOTE | ~2024-02-20 | XR_ITS ---
XR chest 2V Ordering provider: Alicia De Leon PA-C History: 83 years Female with . weakness . Comparison: August 29, 2023 FINDINGS: MEDIASTINUM: The cardiac silhouette is not enlarged. LUNGS: No infiltrates, effusions or pneumothorax. Underlying emphysematous changes. OTHER: No free air under the diaphragm. IMPRESSION: No acute cardiopulmonary pathology. Reviewed, dictated and finalized at location A. NDER CHECKER
--- NOTE | ~2024-02-20 | CT_ITS ---
CT lumbar spine wo con Ordering provider: Alicia De Leon PA-C History: 83 years Female with . low back pain . Comparison: None. Technique: CT lumbar spine without contrast. Automated exposure control and iterative reconstruction technique were employed. The dose-length product was 459.45 mGy-cm. FINDINGS: VERTEBRAE: Normal height and alignment. No subluxation or visible acute fracture. Degenerative change s of the spine. DISC SPACES: Well maintained. T12-L1: No stenosis. L1-L2: No stenosis. L2-L3: No stenosis. L3-L4: No stenosis. L4-L5: No stenosis. Diffuse disc bulge with slight narrowing of the foramina. Bilateral facet joint disease. L5-S1: No stenosis. Diffuse disc bulge with slight narrowing of the foramina. Bilateral facet joint disease. PARASPINOUS SOFT TISSUES: Mild atheromatous disease of the abdominal aorta. Left sacroiliitis. IMPRESSION: No acute osseous abnormality. Diffuse disc bulge at the level of L4-L5 and L5-S1. Reviewed, dictated and finalized at location A. CASTING SUPERVISOR
[2024-02-20 18:00] VITALS: BP 131/62; PULSE 67; RESP 14; TEMP 36.4; O2SAT 100
--- NOTE | 2024-02-20 18:05 | ECG_ITS ---
Test Date: 2024-02-20 19:29:22 Measurements Intervals Drake Rate: 67 P: 58 ID: [id number] QRS: 50 QRSD: 95 T: 57 QT: 399 QTc: 423 Interpretive Statements SINUS RHYTHM POSSIBLE RIGHT VENTRICULAR CONDUCTION DELAY [RSR (QR) IN V1/V2] Compared to ECG 08/29/2023 16:53:04 Incomplete right bundle-branch block no longer present Electronically Signed On 02-24-2024 14:50:26 [employer] by Francisco J Quinn M.D.
--- NOTE | 2024-02-20 18:16 | ED.GENADULT ---
HPI - General Adult General Chief complaint: Weakness Stated complaint: pain all over, decreased PO intake Time Seen by Provider: 02/20/24 18:05 Source: patient and EMS Mode of arrival: EMS Limitations: dementia History of Present Illness HPI narrative: This is an 83-year-old female that presents to the emergency department for low back pain. Ongoing over the last several days. Reports no known injuries or trauma. Sent in from facility for decreased p.o. intake and generalized pain. Related Data Home Medications ?Medication ?Instructions ?Recorded ?Confirmed ?Last Taken ?Type aripiprazole 2 mg tablet 2 mg PO HS 08/24/23 08/29/23 Unknown History sertraline 25 mg tablet 25 mg PO DAILY 08/24/23 08/29/23 Unknown History Allergies Allergy/AdvReac Type Severity Reaction Status Date / Time Sulfa (Sulfonamide Allergy Unknown Unknown Verified 08/29/23 16:41 Antibiotics) Review of Systems Review of Systems: ROS unobtainable: Yes unobtainable due to medical condition PMFSH Past Medical History Medical History (Updated 02/20/24 @ 23:44 by Alicia De Leon PA-C) Depression Arthritis Dementia Family History Family History Sibling Family history of diabetes mellitus in first degree relative Social History Social History Smoking status: Never smoker Alcohol intake: never Substance use: never Do You Feel Safe in your Home?: Yes Lack of Transportation: No Lack of Food: Never True Current Housing: I Have Housing Concerned About Future Housing: No Difficulty Paying Gas/Electric Bills: No Difficulty Paying for Meds: No Currently Unemployed: No Education: High School Diploma/GED Difficulty w/ Childcare or Family Care: No Spiritual care concerns: No Exam Narrative: GENERAL: Elderly, well-nourished, and in no acute distress. HEAD: Normocephalic, atraumatic. EYES: PERRLA and EOMI. ENT: Nares clear, no rhinorrhea or epistaxis. Mucous membranes moist. Oropharynx without tonsillar hypertrophy exudate or other lesions. Bilateral TMs pearly boyd non-bulging NECK: Supple. No adenopathy or masses. CHEST: Clear to auscultation. No respiratory distress. No wheezes rales or rhonchi HEART: Regular rate and rhythm. No murmur heard. Normal peripheral pulses. ABDOMEN: Soft, nontender, nondistended, normal active bowel sounds. EXTREMITIES: Normal range of motion. No edema or obvious deformity. Normal DP pulses SKIN: Warm, dry, no rash. NEURO: No focal deficits. Alert and oriented x1-2. PSYCH: Normal mood and affect Course Course Emergency Course: Patient and family updated on workup and agree with plan of care. Patient resting comfortably Vital Signs Vital signs: Vital Signs Temperature 97.6 F 02/20/24 18:00 Pulse Rate 67 02/20/24 18:00 Respiratory Rate 14 02/20/24 18:00 Blood Pressure 131/62 02/20/24 18:00 Pulse Oximetry 100 02/20/24 18:00 Temperature 97.6 F 02/20/24 18:00 Pulse Rate 60 02/20/24 22:56 Respiratory Rate 14 02/20/24 22:56 Blood Pressure 128/66 02/20/24 22:56 Pulse Oximetry 100 02/20/24 22:56 Medical Decision Making MDM Narrative Medical decision making narrative: Patient presents to the emergency department for generalized weakness, low back pain. Ongoing over the last week. She is afebrile and nontoxic appearing. Her vitals are stable. Cbc without leukocytosis. Metabolic panel with mild hypokalemia, patient's potassium was replaced. Magnesium is normal. Urine with evidence of possible infection. This was sent for culture. Patient given a dose of Rocephin in the ED. influenza, RSV and COVID screens are negative. Chest x-ray without acute cardiopulmonary abnormality. CT lumbar spine without acute osseous abnormalities. Does show bulging discs at L4/5 and L5/1. Patient and family updated on workup and agree with plan of care. Patient resting comfortably. Will be continued on oral antibiotics and discharged back to facility. They were given warnings to return to the ER Vital Signs Vital Signs: Vital Signs Temperature 97.6 F 02/20/24 18:00 Pulse Rate 67 02/20/24 18:00 Respiratory Rate 14 02/20/24 18:00 Blood Pressure 131/62 02/20/24 18:00 Pulse Oximetry 100 02/20/24 18:00 Temperature 97.6 F 02/20/24 18:00 Pulse Rate 60 02/20/24 22:56 Respiratory Rate 14 02/20/24 22:56 Blood Pressure 128/66 02/20/24 22:56 Pulse Oximetry 100 02/20/24 22:56 Lab Data Lab results reviewed: Yes I reviewed the patient's lab results. 02/20/24 18:21 02/20/24 18:21 Labs: Lab Results 02/20/24 02/20/24 Range/Units 18:21 19:14 WBC 8.0 (4.5-10.0) K/mm3 RBC 4.68 (4.2-5.4) M/mm3 Hgb 14.4 (12.0-15.0) g/dL Hct 41.1 (37.0-47.0) % MCV 87.8 (80-100) fl MCH 30.8 (26-34) pg MCHC 35.0 (32-36) g/dl RDW 12.4 (11.5-14.5) % Plt Count 187 (150-375) k/mm3 MPV 9.5 (7.4-10.4) fl Immature Gran % (Auto) 0.2 (0-0.5) % Neut % (Auto) 76.0 H (45.5-73.1) % Lymph % (Auto) 14.8 L (18.3-44.2) % [place] % (Auto) 7.8 (2.6-8.5) % Eos % (Auto) 0.7 (0-4.4) % Baso % (Auto) 0.5 (0.2-1.2) % Lymph # (Auto) 1.19 (0.9-3.2) K/mm3 [place] # (Auto) 0.6 (0.1-0.6) K/mm3 Eos # (Auto) 0.1 (0-0.3) K/mm3 Baso # (Auto) 0.0 (0.0-0.1) K/mm3 Abs Immat Gran (auto) 0.02 (0.00-0.031) K/mm3 Absolute Neuts (auto) 6.1 (1.3-6.7) K/mm3 Absolute Nucleated RBC 0.000 (0.0-0.012) K/mm3 Nucleated RBC % 0.0 (0.0-0.2) % Sodium 137 (137-145) mmol/L Potassium 3.0 L (3.4-5.0) mmol/L Chloride 101 (98-107) mmol/L Carbon Dioxide 33 H (22-30) mmol/L Anion Gap 3 L (4-12) mmol/L BUN 21 H (7-17) mg/dL Creatinine 0.70 (0.7-1.0) mg/dL Estim Creat Clear Calc 47 ml/min Estimated GFR > 60 (59 - ) Glucose 172 H (65-110) mg/dL Calcium 9.6 (8.4-10.2) mg/dL Magnesium 2.1 (1.6-2.3) mg/dL Total Bilirubin 0.8 (0.2-1.3) mg/dL AST 25 (14-36) U/L ALT 18 (6-35) U/L Alkaline Phosphatase 127 H (38-126) U/L Total Protein 7.0 (6.3-8.2) g/dL Albumin 4.4 (3.5-5.1) g/dL Urine Color Yellow (Yellow) Urine Appearance Clear (Clear) Urine pH 5.5 (5.0-9.0) Ur Specific [place] 1.024 (1.001-1.035) Urine Protein Negative (Negative) mg/dL Urine Glucose (UA) Negative (Negative) mg/dL Urine Ketones Negative (Negative) mg/dL Ur Blood (Man) Negative (Negative) Urine Nitrate Negative (Negative) Urine Bilirubin Negative (Negative) Urine Urobilinogen 1.0 (<2.0) mg/dL Leukocyte Esterase Rfl 1+ H (Negative) CORIE/UL Urine RBC 0-2 (0-2) /hpf Urine WBC 11-20 H (0-3) /hpf Ur Squamous Epith Cells None seen (Few) /hpf Urine Bacteria None seen /hpf Urine Casts 0-2 Influenza A (RT-PCR) Negative (Negative) Influenza B (RT-PCR) Negative (Negative) RSV (RT-PCR) Negative (Negative) SARS-CoV-2 RNA (RT-PCR) Negative (Negative) Imaging Data Radiologist's impression: ITS Impressions Chest X-Ray 02/20/24 19:10 IMPRESSION: No acute cardiopulmonary pathology. Lumbar Spine CT 02/20/24 19:45 IMPRESSION: No acute osseous abnormality. Diffuse disc bulge at the level of L4-L5 and L5-S1. Critical Care Time Critical Care Time Critical Care Time: No Discharge Plan Discharge Clinical Impression: Acute UTI, Hypokalemia Patient Disposition: NH Senior Care/Asst Living Condition: Stable Instructions: Antibiotic Form, Hypokalemia (ED), Urinary Tract Infection in Older Adults (ED) Additional Instructions: Return to the emergency department if you experience fever, chest pain, shortness of breath, abdominal pain with nausea and vomiting, weakness, numbness, or any other symptoms that are concerning to you. Take oral antibiotics as prescribed. Tylenol or Ibuprofen as needed for pain Follow up with your primary care doctor Patient Language: Monegasque Prescriptions: New cefdinir 300 mg capsule 300 mg PO Q12H 7 Days Qty: 14 0RF No Action sertraline 25 mg Tablet 25 mg PO DAILY aripiprazole 2 mg Tablet 2 mg PO HS amlodipine 10 mg Tablet 10 mg PO DAILY 30 Days Qty: 30 0RF Follow-up/Referrals: Eric,MD Ramu [Primary Care Provider] - Stand Alone Forms: [facility] Discharge
[2024-02-20 18:29] LABS: Basophils Percent Auto 0.5 % (0.2-1.2); Eosinophils Absolute Auto 0.1 K/mm3 (0-0.3); Eosinophils Percent Auto 0.7 % (0-4.4); Hematocrit 41.1 % (37.0-47.0); Hemoglobin 14.4 g/dL (12.0-15.0); Immature Granulocyte Absolute 0.02 K/mm3 (0.00-0.031); Immature Granulocyte Percent A 0.2 % (0-0.5); Lymphocytes Absolute Auto 1.19 K/mm3 (0.9-3.2); Lymphocytes Percent Auto 14.8 % (18.3-44.2); Mean Corpuscular Hemoglobin 30.8 pg (26-34); Mean Corpuscular Volume 87.8 fl (80-100); Mean Platelet Volume 9.5 fl (7.4-10.4); Monocytes Absolute Auto 0.6 K/mm3 (0.1-0.6); Monocytes Percent Auto 7.8 % (2.6-8.5); Neutrophils Absolute Auto 6.1 K/mm3 (1.3-6.7); Platelet Count Result 187 k/mm3 (150-375); Red Blood Count 4.68 M/mm3 (4.2-5.4); Red Cell Distribution Width 12.4 % (11.5-14.5)
[2024-02-20] MEDS: ACETAMINOPHEN 500 MG TABLET 1000 MG PO (18:32)
[2024-02-20] MEDS: LIDOCAINE 5% PATCH 1 PATCH TRANSDERM (18:32)
[2024-02-20 18:40] LABS: Alanine Aminotransferase 18 U/L (6-35); Albumin Level 4.4 g/dL (3.5-5.1); Alkaline Phosphatase 127 U/L (38-126); Anion Gap 3 mmol/L (4-12); Aspartate Amino Transferase 25 U/L (14-36); Bilirubin,Total 0.8 mg/dL (0.2-1.3); Blood Urea Nitrogen 21 mg/dL (7-17); Calcium 9.6 mg/dL (8.4-10.2); Carbon Dioxide 33 mmol/L (22-30); Chloride 101 mmol/L (98-107); Estimated CRCL calculation 47 ml/min; Estimated Glomerular Filt Rate > 60; Glucose 172 mg/dL (65-110); Sodium 137 mmol/L (137-145)
[2024-02-20 19:01] LABS: Magnesium 2.1 mg/dL (1.6-2.3)
[2024-02-20 19:07] LABS: Influenza A QL RT-PCR Negative (Negative); Influenza B QL RT-PCR Negative (Negative); RSV RNA, RT-PCR Negative (Negative); SARS-CoV-2 RNA PCR Negative (Negative)
[2024-02-20] MEDS: POTASSIUM CHLORIDE 20 MEQ ER TABLET 40 MEQ PO (19:28)
[2024-02-20 19:45] LABS: Add Urine Microscopic? YES; Appearance Urine Clear (Clear); Bacteria Urine None Seen /hpf; Bilirubin Urine Negative (Negative); Blood Urine Negative (Negative); Color Urine Yellow (Yellow); Glucose Urine UA Negative (Negative); Ketones Urine Negative (Negative); Leukocyte Esterase Ur 1+ LEU/UL (Negative); Nitrate Urine Negative (Negative); Non Pathogenic Casts 0-2; Protein Urine Negative (Negative); RBC Urine 0-2 /hpf (0-2); Specific Grav Ur 1.024 (1.001-1.035); Squamous Epithelial Cell Urine None Seen /hpf (Few); pH Urine 5.5 (5.0-9.0)
[2024-02-20 22:56] VITALS: BP 128/66; PULSE 60; RESP 14; O2SAT 100
--- NOTE | 2024-02-20 23:17 | PC.NURSE ---
Report given to VENKATA Valles. All questions answered at this time.
[2024-02-21 00:58] VITALS: BP 131/79; PULSE 88; RESP 18; O2SAT 97
--- NOTE | 2024-02-21 01:06 | PC.NURSE ---
RN attempted to get a hold of Reggie in [place] to give discharge information on pt. No answer. RN left voicemail.
== END 2024-02-21 00:59 ==
PROVIDERS: Emergency Provider Physician Assistant; PCP Internal Medicine
DX: N39.0 Urinary tract infection, site not specified (principal); E87.6 Hypokalemia; Z20.822 Contact with and (suspected) exposure to COVID-19; F03.90 Unspecified dementia, unspecified severity, without behavioral disturbance, psychotic disturbance, mood disturbance, and anxiety; M19.90 Unspecified osteoarthritis, unspecified site; F32.A Depression, unspecified; M51.379 Other intervertebral disc degeneration, lumbosacral region without mention of lumbar back pain or lower extremity pain; Z79.899 Other long term (current) drug therapy; R94.31 Abnormal electrocardiogram [ECG] [EKG]
CPT/HCPCS: 36415; 71046; 72131; 80053; 81001; 83735; 85025; 87086; 87637; 93005; 96365; 99284; A9270; J0696

== ENCOUNTER 2024-08-22 16:29 | Emergency (ER) | payer MEDICARE, SELFPAY ==
[2024-08-22] VITALS (7 sets, daily range): BP systolic 124–142; BP diastolic 66–73; PULSE 68–88; RESP 16–18; TEMP 36.6; O2SAT 95–100
--- NOTE | ~2024-08-22 | CT_ITS ---
EXAMINATION: CT brain wo con DATE: 08/22/2024 18:00 INDICATION: fall . TECHNIQUE: Computed tomography (CT) of the head was performed without intravenous contrast. The mA wa s adjusted according to patient size. Iterative reconstruction technique was employed. The dose-lengt h product was 605.33 mGy-cm. COMPARISON: 08/29/2023. FINDINGS: No acute intracranial hemorrhage or extra-axial fluid collection. No hydrocephalus, mass, or herniation. No acute ischemic infarct. Unremarkable dural venous sinus attenuation. No acute osseous abnormality. Right frontal scalp and left orbital/cheek soft tissue swelling. Right mastoid fluid, the remaining aerated spaces are clear. IMPRESSION: No acute intracranial process. Reviewed, dictated and finalized at location K.
--- NOTE | ~2024-08-22 | CT_ITS ---
EXAMINATION: CT cervical spine wo con DATE: 08/22/2024 18:00 INDICATION: head injury TECHNIQUE: Computed tomography (CT) of the cervical spine was performed without intravenous contrast. Automated exposure control and iterative reconstruction technique were employed. The dose-length pro duct was 103.27 mGy-cm. COMPARISON: CTA brain carotid 08/25/2023. FINDINGS: Vertebral Body Alignment: Intact. Craniocervical and atlantoaxial alignment: Moderate degenerative change. Alignment intact. Osseous structures/fracture: No evidence of a lytic or blastic process in the visualized spine. No e vidence of acute fracture. Cervical soft tissues: The paraspinal soft tissues planes are maintained. Degenerative changes: Degenerative changes, without severe neural foraminal or central canal narrowin g. IMPRESSION: No acute fracture or traumatic malalignment in the cervical spine. Reviewed, dictated and finalized at location K.
--- NOTE | 2024-08-22 16:46 | PC.NURSE ---
CT ordered per Dr. Grey
--- NOTE | 2024-08-22 19:03 | PC.NURSE ---
c-collar removed at this time per Dr. Gonzalez. Also Straight cath UA ordered, family thinks she has UTI because she is dribbling. She is prone to them.
--- OUTSIDE RECORDS SUMMARY | 2024-08-22 19:26 | XMS_ITS | Data Portability ---
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 Zoloft 25 mg for anxiety follow-up in 1 month Not available 05/03/2023 22:27:09 05/29/2023 05/29/2023 Neurology. Psychiatry. She does have a friend with her today if patient gets worse take to ER [email or web address] Not available 05/29/2023 22:21:08 08/02/2023 08/02/2023 Restart the Zoloft take medications as prescribed by psychiatrist margaret Not available 08/03/2023 12:26:48 10/07/2023 10/07/2023 5 obtain he hepatitis AB and C serology recheck CMP check a CBC follow up with me in 2 months [email or web address] Not available 10/12/2023 13:33:37 01/08/2024 01/08/2024 blood work urinalysis blood pressure controlled continue amlodipine. aripiprazole and donepezil for dementia sertraline for depression . Currently not getting B12 injections best we can tell we will obtain blood work she will see me back in 4 months urinalysis also believes she is getting flu and COVID shots at her facility [email or web address] Not available 01/11/2024 13:45:05 Plan of Treatment Reminders Order Date Submit Date Provider Last Modified By Organization Details Last Modified Time Details Appointments None recorded. Lab urinalysis complete, reflex culture 2023 024 BASHIR [facility], [address], [address], [place], [address], 4 16:08:09 CBC w/ auto diff 2023 024 [facility], [address], [address], [place], [address], 5 16:41:34 lipid panel, serum 2023 024 [facility], [address], [address], [place], [address], 4 17:19:57 CMP, serum or plasma 2023 024 [facility], [address], [address], [place], [address], 5 16:41:34 hepatitis panel (A+B+C), acute, serum 2023 024 [email or web address], [address], [address], [place], [address], 4 19:27:14 CMP, serum or plasma 2023 [facility]24 [email or web address], [address], [address], [place], [address], 4 11:35:46 CBC w/ auto diff 2023 024 PANGUITCH [facility], [address], [address], [place], [address], 4 15:19:56 Referral neurologis t referral 2023 024 rina Dupree MD, 4 [facility] , [address], [place], [address], 4 14:59:[address] referral 2023 024 BASHIR Hu MD, [address], [address], [place], [address], 12:07:40 neurologis t referral 2023 024 piero Dupree MD, 4 [facility], [address], [place], [address], 18:06:16 Procedures None recorded. Surgeries None recorded. Imaging None recorded. Medication Orders Zoloft 25 mg tablet 2023 024 [email or web address] [id number], [address], [place], [address], 4 12:03:11 Zoloft 25 mg tablet 2023 024 [email or web address] [id number], [address], [place], [address], 4 22:20:27 Zoloft 25 mg tablet 2023 024 [email or web address] [id number], [address], [place], [address], 22:26:40 Patient TargetsNo targets recorded. Patient InstructionsNo instructions recorded. Reason for Referral Neurologist Referral for Mem ory impairment Referring Physician: Mohini Reyes, Internal Medicine, Encounter Date: 05/03/2023 Psychiatrist Referral for Cronin llucinations Referring Physician: Mohini Reyes, Internal Medicine, Encounter Date: 05/29/2023 Neurologist Referral for Mem ory impairment Referring Physician: Mohini Reyes, Internal Medicine, Encounter Date: 05/29/2023 Results Created Date Observation Date Name Description Value Unit Range Abnormal Flag Note LastModifiedBy Organization Detail LastModifiedTime 04/17/19 24 04/18/2023 LIPID PANEL cholesterol, total 233 mg/dL 100-19 9 above high normal Not Available [facility] ([facility]) [address] [facility] [place], [address], 04/18/2023 13:13:56 04/17/19 24 04/18/2023 LIPID PANEL triglyceride s 185 mg/dL 0-149 above high normal Not Available [facility] ([facility]) [address] [facility] [place], [address], 04/18/2023 13:13:56 04/17/19 24 04/18/2023 LIPID PANEL HDL cholesterol 63 mg/dL >39 Not Available [facility] ([facility]) [address] [facility] [place], [address], 04/18/2023 13:13:56 04/17/19 24 04/18/2023 LIPID PANEL VLDL cholesterol judy 33 mg/dL 5-40 Not Available [facility] ([facility]) [address] [place], [address], 04/18/2023 13:13:56 04/17/19 24 04/18/2023 LIPID PANEL LDL chol calc ([facility]) 137 mg/dL 0-99 above high normal Not Available [facility] ([facility]) [address] [place], [address], 04/18/2023 13:13:56 04/17/19 24 04/18/2023 COMP. METAB OLIC PANEL (14) glucose 99 mg/dL 70-99 Not Available [facility] ([facility]) [address] [place], [address], 04/18/2023 13:13:56 04/17/19 24 04/18/2023 COMP. METAB OLIC PANEL (14) BUN 17 mg/dL 8-27 Not Available [facility] ([facility]) [address] [place], [address], 04/18/2023 13:13:56 04/17/19 24 04/18/2023 COMP. METAB OLIC PANEL (14) creatinine 0.77 mg/dL 0.57-1 .00 Not Available [facility] ([facility]) [address] [facility] [place], [address], 04/18/2023 13:13:56 04/17/19 24 04/18/2023 COMP. METAB OLIC PANEL (14) eGFR 78 mL/mi n/1.7 3 >59 Not Available [facility] ([facility]) [address] [facility] [place], [address], 04/18/2023 13:13:56 04/17/19 24 04/18/2023 COMP. METAB OLIC PANEL (14) BUN/creatini ne ratio 22 - Not Available [facility] ([facility]) [address] [facility] [place], [address], 04/18/2023 13:13:56 04/17/19 24 04/18/2023 COMP. METAB OLIC PANEL (14) sodium 143 mmol/ L 134-14 4 Not Available [facility] ([facility]) [address] [facility] [place], [address], 04/18/2023 13:13:56 04/17/19 24 04/18/2023 COMP. METAB OLIC PANEL (14) potassium 4.0 mmol/ L 3.5-5. 2 Not Available [facility] ([facility]) [address] [facility] [place], [address], 04/18/2023 13:13:56 04/17/19 24 04/18/2023 COMP. METAB OLIC PANEL (14) chloride 104 mmol/ L 96-106 Not Available [facility] ([facility]) [address] [facility] [place], [address], 04/18/2023 13:13:56 04/17/19 24 04/18/2023 COMP. METAB OLIC PANEL (14) carbon dioxide, total 26 mmol/ L 20- Not Available [facility] ([facility]) [address] [facility], [place], [address], 04/18/2023 13:13:56 04/17/19 24 04/18/2023 COMP. METAB OLIC PANEL (14) calcium 9.9 mg/dL 8.7-10 .3 Not Available [facility] ([facility]) [address] [place], [address], 04/18/2023 13:13:56 04/17/19 24 04/18/2023 COMP. METAB OLIC PANEL (14) protein, total 6.8 g/dL 6.0-8. 5 Not Available [facility] ([facility]) [address] [place], [address], 04/18/2023 13:13:56 04/17/19 24 04/18/2023 COMP. METAB OLIC PANEL (14) albumin 4.7 g/dL 3.8-4. 8 Not Available [facility] ([facility]) [address] [place], [address], 04/18/2023 13:13:56 04/17/19 24 04/18/2023 COMP. METAB OLIC PANEL (14) globulin, total 2.1 g/dL 1.5-4. 5 Not Available [facility] ([facility]) [address] [place], [address], 04/18/2023 13:13:56 04/17/19 24 04/18/2023 COMP. METAB OLIC PANEL (14) A/G ratio 2.2 1.2-2. 2 Not Available [facility] ([facility]) [address] [place], [address], 04/18/2023 13:13:56 04/17/19 24 04/18/2023 COMP. METAB OLIC PANEL (14) bilirubin, total 0.8 mg/dL 0.0-1. 2 Not Available [facility] ([facility]) [address] [place], [address], 04/18/2023 13:13:56 04/17/19 24 04/18/2023 COMP. METAB OLIC PANEL (14) alkaline phosphatase 121 IU/L 44-121 Not Available [facility] ([facility]) [address] [facility], [place], [address], 04/18/2023 13:13:56 04/17/19 24 04/18/2023 COMP. METAB OLIC PANEL (14) AST (SGOT) 21 IU/L 0-40 Not Available [facility] ([facility]) [address] [facility], [place], [address], 04/18/2023 13:13:56 04/17/19 24 04/18/2023 COMP. METAB OLIC PANEL (14) ALT (SGPT) 19 IU/L 0-32 Not Available [facility] ([facility]) [address] [facility], [place], [address], 04/18/2023 13:13:56 04/17/19 24 04/18/2023 MICRO SCOPI C EXAMI NATIO N WBC 0-5 /hpf 0-5 Not Available [facility] ([facility]) [address] [facility], [place], [address], 04/18/2023 13:13:57 04/17/19 24 04/18/2023 MICRO SCOPI C EXAMI NATIO N RBC None seen /hpf 0-2 Not Available [facility] ([facility]) [address] [place], [address], 04/18/2023 13:13:57 04/17/19 24 04/18/2023 MICRO SCOPI C EXAMI NATIO N epithelial cells (non renal) 0-10 /hpf 0-10 Not Available [facility] ([facility]) [address] [facility], [place], [address], 04/18/2023 13:13:57 04/17/19 24 04/18/2023 MICRO SCOPI C EXAMI NATIO N casts None seen /lpf nonese en Not Available [facility] ([facility]) [address] [facility], [place], [address], 04/18/2023 13:13:57 04/17/19 24 04/18/2023 MICRO SCOPI C EXAMI NATIO N crystals Presen t n/a abnormal Not Available [facility] ([facility]) [address] [facility], [place], [address], 04/18/2023 13:13:57 04/17/19 24 04/18/2023 MICRO SCOPI C EXAMI NATIO N crystal type Calciu m Oxalat e Not Available [facility] ([facility]) [address] [facility], [place], [address], 04/18/2023 13:13:57 04/17/19 24 04/18/2023 MICRO SCOPI C EXAMI NATIO N mucus threads Presen t notest ab. Not Available [facility] ([facility]) [address] [facility], [place], [address], 04/18/2023 13:13:57 04/17/19 24 04/18/2023 MICRO SCOPI C EXAMI NATIO N bacteria None seen nonese en/few Not Available [facility] ([facility]) [address] [facility], [place], [address], 04/18/2023 13:13:57 04/17/19 24 04/18/2023 VITAM IN B12+F OLATE vitamin B12 >2000 pg/mL 232-12 45 above high normal Not Available [facility] ([facility]) [address] [facility], [place], [address], 04/18/2023 13:13:58 04/17/19 24 04/18/2023 VITAM IN B12+F OLATE folate (folic acid), serum 13.1 NG/mL >3.0 A serum folat e cecile ntrat ion of less than 3.1 ng/mL is consi dered to repre sent clini judy defic iency . Not Available [facility] ([facility]) [address] [facility], [place], [address], 04/18/2023 13:13:58 04/17/19 24 04/18/2023 CBC WITH DIFFE RENTI AL/PL ATELE T WBC 6.9 x10e3 /uL 3.4-10 .8 Not Available [facility] ([facility]) [address] [facility], [place], [address], 04/18/2023 13:13:58 04/17/19 24 04/18/2023 CBC WITH DIFFE RENTI AL/PL ATELE T RBC 4.45 x10e6 /uL 3.77-5 .28 Not Available [facility] ([facility]) [address] [facility], [place], [address], 04/18/2023 13:13:58 04/17/19 24 04/18/2023 CBC WITH DIFFE RENTI AL/PL ATELE T hemoglobin 14.0 g/dL 11.1-1 5.9 Not Available [facility] ([facility]) [address] [facility], [place], [address], 04/18/2023 13:13:58 04/17/19 24 04/18/2023 CBC WITH DIFFE RENTI AL/PL ATELE T hematocrit 41.7 % 34.0-4 6.6 Not Available [facility] ([facility]) [address] [facility], [place], [address], 04/18/2023 13:13:58 04/17/19 24 04/18/2023 CBC WITH DIFFE RENTI AL/PL ATELE T MCV 94 fL 79-97 Not Available [facility] ([facility]) [address] [facility], [place], [address], 04/18/2023 13:13:58 04/17/19 24 04/18/2023 CBC WITH DIFFE RENTI AL/PL ATELE T MCH 31.5 pg 26.6-3 3.0 Not Available [facility] ([facility]) [address] [facility], [place], [address], 04/18/2023 13:13:58 04/17/19 24 04/18/2023 CBC WITH DIFFE RENTI AL/PL ATELE T MCHC 33.6 g/dL 31.5-3 5.7 Not Available [facility] ([facility]) [address] [facility], [place], [address], 04/18/2023 13:13:58 04/17/19 24 04/18/2023 CBC WITH DIFFE RENTI AL/PL ATELE T RDW 12.2 % 11.7-1 5.4 Not Available [facility] ([facility]) [address] [facility], [place], [address], 04/18/2023 13:13:58 04/17/19 24 04/18/2023 CBC WITH DIFFE RENTI AL/PL ATELE T platelets 168 x10e3 /uL 150-45 0 Not Available [facility] ([facility]) [address] [facility], [place], [address], 04/18/2023 13:13:58 04/17/19 24 04/18/2023 CBC WITH DIFFE RENTI AL/PL ATELE T neutrophils 76 % notest ab. Not Available [facility] ([facility]) [address] [place], [address], 04/18/2023 13:13:58 04/17/19 24 04/18/2023 CBC WITH DIFFE RENTI AL/PL ATELE T lymphs 14 % notest ab. Not Available [facility] ([facility]) [address] [place], [address], 04/18/2023 13:13:58 04/17/19 24 04/18/2023 CBC WITH DIFFE RENTI AL/PL ATELE T monocytes 8 % notest ab. Not Available [facility] ([facility]) [address] [facility], [place], [address], 04/18/2023 13:13:58 04/17/19 24 04/18/2023 CBC WITH DIFFE RENTI AL/PL ATELE T eos 1 % notest ab. Not Available [facility] ([facility]) [address] [facility], [place], [address], 04/18/2023 13:13:58 04/17/19 24 04/18/2023 CBC WITH DIFFE RENTI AL/PL ATELE T basos 1 % notest ab. Not Available [facility] ([facility]) [address] [facility], [place], [address], 04/18/2023 13:13:58 04/17/19 24 04/18/2023 CBC WITH DIFFE RENTI AL/PL ATELE T neutrophils (absolute) 5.3 x10e3 /uL 1.4-7. 0 Not Available [facility] ([facility]) [address] [facility], [place], [address], 04/18/2023 13:13:58 04/17/19 24 04/18/2023 CBC WITH DIFFE RENTI AL/PL ATELE T lymphs (absolute) 0.9 x10e3 /uL 0.7-3. 1 Not Available [facility] ([facility]) [address] [facility], [place], [address], 04/18/2023 13:13:58 04/17/19 24 04/18/2023 CBC WITH DIFFE RENTI AL/PL ATELE T monocytes(ab solute) 0.6 x10e3 /uL 0.1-0. 9 Not Available [facility] ([facility]) [address] [facility], [place], [address], 04/18/2023 13:13:58 04/17/19 24 04/18/2023 CBC WITH DIFFE RENTI AL/PL ATELE T eos (absolute) 0.1 x10e3 /uL 0.0-0. 4 Not Available [facility] ([facility]) [address] [place], [address], 04/18/2023 13:13:58 04/17/19 24 04/18/2023 CBC WITH DIFFE RENTI AL/PL ATELE T baso (absolute) 0.0 x10e3 /uL 0.0-0. 2 Not Available [facility] ([facility]) [address] [place], [address], 04/18/2023 13:13:58 04/17/19 24 04/18/2023 CBC WITH DIFFE RENTI AL/PL ATELE T immature granulocytes 0 % notest ab. Not Available [facility] ([facility]) [address] [place], [address], 04/18/2023 13:13:58 04/17/19 24 04/18/2023 CBC WITH DIFFE RENTI AL/PL ATELE T immature grans (abs) 0.0 x10e3 /uL 0.0-0. 1 Not Available [facility] ([facility]) [address] [place], [address], 04/18/2023 13:13:58 04/17/19 24 04/18/2023 TRIIO DOTHY KHUSHBOO E (T3), FREE triiodothyro nine (T3), free 3.0 pg/mL 2.0-4. 4 Not Available [facility] ([facility]) [address] [place], [address], 04/18/2023 13:13:59 04/17/19 24 04/18/2023 T4,FR EE(DI RECT) T4,free(dire ct) 1.14 NG/dL 0.82-1 .77 Not Available [facility] ([facility]) [address] [place], [address], 04/18/2023 13:14:00 04/17/19 24 04/22/2023 THYRO ID STIMU LATIN G HORMO NE TSH-icma 3.1 uu/mL Refer ence Range : Non-P regna nt Adult 0.450 -4.50 0 Pregn bobby First Trime ster 0.100 -4.00 0 Secon d Trime ster 0.200 -4.00 0 Third Trime ster 0.300 -4.50 0 Not Available [facility] [address] [facility], [place], [address], 04/22/2023 06:07:56 04/25/19 24 04/25/2023 MRI, brain , w/o contr ast No observ ation record ed. [address], [address], 05/05/2023 22:40:14 08/24/19 24 08/24/2023 XR, chest , 1 view No observ ation record ed. [address], [place], [address], 09/03/2023 17:06:12 08/24/19 24 08/24/2023 CT, brain , w/o contr ast No observ ation record ed. [address], [place], [address], 09/03/2023 17:06:29 08/24/19 24 08/24/2023 CT, abdom en + pelvi s, w/ contr ast No observ ation record ed. [address], [place], [address], 09/03/2023 17:06:41 08/25/19 24 08/25/2023 MRI, brain , w/o contr ast No observ ation record ed. [address], [place], [address], 08/26/2023 09:07:37 08/25/19 24 08/25/2023 CT, angio gram, head, w/wo contr ast No observ ation record ed. [address], [place], [address], 09/04/2023 12:41:29 08/29/19 24 08/29/2023 CT, brain , w/wo contr ast No observ ation record ed. [address], [place], [address], 09/03/2023 17:18:03 08/29/19 24 08/29/2023 XR, chest , 2 view No observ ation record ed. [address], [place], [address], 09/03/2023 17:18:29 08/29/19 24 08/29/2023 CT, abdom en + pelvi s, w/ contr ast No observ ation record ed. [address], [place], [address], 09/03/2023 17:18:47 02/19/19 25 02/20/2024 XR, chest , 2 view No observ ation record ed. [address], [place], [address], 02/21/2024 08:59:47 02/19/19 25 02/20/2024 CT, lumba r spine , w/o contr ast No observ ation record ed. [address], [place], [address], 02/26/2024 22:34:06 08/23/19 25 08/22/2024 imagi ng/di agnos tic resul t No observ ation record ed. [address], [place], [address], 08/22/2024 19:20:33 08/23/19 25 08/22/2024 imagi ng/di agnos tic resul t No observ ation record ed. [address], [place], [address], 08/22/2024 19:22:38 Result Notes None recorded. Problems Name Problem SNOMED Code Status Onset Date Resolution Date Notes Provider Name and Address Organization Details Recorded Time Memory impairment 021167006 Active 2023 Chavez Humphrey [place] null, [place] 4 15:24:04 Hallucinations 6201717 Active 2023 Chavez Humphrey MA null, [place] - [facility] 4 15:24:05 Hyperlipidemia 09230691 Active 2023 Mohini Reyes MD Attn: Accountin g,[address] [facility], [place], [address], [facility] - [place] 4 12:26:48 Essential hypertension 22979530 Active 2023 Mohini Reyes MD Attn: Accountin g,[address] [facility], [place], [address], [facility] - [place] 4 13:33:13 Problem Notes None recorded. Medical Equipment None Reported. Allergies No known drug allergies Medications Name Sig Start Date Stop Date Status Note LastModified by Organization Details LastModified Time donepezil 5 mg tablet active Not Available Not Available No t Available amlodipine 10 mg tablet TAKE 1 TABLET BY MOUTH EVERY DAY active Not Available Not Available No t Available cyanocobala min (vit B-12) 1,000 mcg/mL injection solution Inject 1 mL every month by subcutane ous route. 2023 active Not Available Not Available Not Avai lable sertraline 25 mg tablet TAKE 1 TABLET BY MOUTH EVERY DAY active Not Available Not Available No t Available nitrofurant oin monohydrate /macrocryst als 100 mg capsule TAKE 1 CAPSULE BY MOUTH TWICE A DAY FOR 7 DAYS 10/06 completed Not Available Not Available Not Available aripiprazol e 2 mg tablet TAKE 1 TABLET BY MOUTH EVERY DAY IN THE EVENING FOR 30 DAYS active Not Available Not Available No t Available mecobalamin (vitamin B12) 10,000 mcg solution for injection Take by injection route. 05/28 completed Not Available Not Available Not Available Vitals Date Recorded Body height Body mass index (BMI) Body weight Oxygen saturation Oxygen saturation in Arterial blood by Pulse oximetry Respiratory rate Heart rate Body temperature Systolic And Diastolic Provider Name and Address Organization Details Last Updated DateTime 4 162.56 cm 20.9 kg/m2 46144.1 9 g 100 % 100 % 14 /min 68 /min 97.8 [degF] 124/70 mm[Hg] Bridgette Camacho MA [facility] 4 12:23:15 Date Recorded Body height Body mass index (BMI) Body weight Oxygen saturation Oxygen saturation in Arterial blood by Pulse oximetry Heart rate Systolic And Diastolic Provider Name and Address Organization Details Last Updated DateTime 4 162.56 cm 20.3 kg/m2 93933.9 g 98 % 98 % 63 /min 138/70 mm[Hg] Hay Nolasco MA [facility] 4 14:54:07 Date Recorded Body height Body mass index (BMI) Body weight Heart rate Oxygen saturation Oxygen saturation in Arterial blood by Pulse oximetry Systolic And Diastolic Provider Name and Address Organization Details Last Updated DateTime 4 162.56 cm 20.1 kg/m2 41753.3 1 g 65 /min 99 % 99 % 130/68 mm[Hg] Hay Nolasco MA [facility] 4 11:18:57 Date Recorded Body height Body mass index (BMI) Body weight Heart rate Oxygen saturation Oxygen saturation in Arterial blood by Pulse oximetry Systolic And Diastolic Provider Name and Address Organization Details Last Updated DateTime 4 162.56 cm 21.1 kg/m2 01866.8 6 g 70 /min 96 % 96 % 126/76 mm[Hg] Hay Nolasco MA [facility] 4 16:36:34 Date Recorded Body height Body mass index (BMI) Body weight Heart rate Oxygen saturation Oxygen saturation in Arterial blood by Pulse oximetry Systolic And Diastolic Provider Name and Address Organization Details Last Updated DateTime 4 162.56 cm 21.1 kg/m2 75736.5 8 g 72 /min 96 % 96 % 112/70 mm[Hg] Magda Granados MA [facility] 4 16:20:19 Social History Question Answer Notes LastModified by Organizat ion Details LastModified Time Tobacco Smoking Status Never Smoker Hay Nolasco MA [facility], [place] - [place] 04/17/2023 16:24:26 Do You Have An Advance Directive? Yes Information n ot available 10/07/2023 Are You Blind Or Do You Have Difficulty Seeing? No Information n ot available 04/17/2023 What Is Your Level Of Caffeine Consumption? None Information not available 04/17/2023 In The 14 Days Before Symptom Onset, Have You Had Close Contact With A Laboratory-confirm ed COVID-19 While That Case Was Ill? No Information n ot available 10/07/2023 In The 14 Days Before Symptom Onset, Have You Had Close Contact With A Person Who Is Under Investigation For COVID-19 While That Person Was Ill? No Information not available 10/07/2023 Have You Been To An Area Known To Be High Risk For COVID-19? No Information not available 10/07/2023 Are You Deaf Or Do You Have Serious Difficulty Hearing? No Information not available 04/17/2023 What Type Of Diet Are You Following? REGULAR Information n ot available 04/17/2023 Are There Any Guns Present In Your Home? No Information not available 04/17/2023 What Was The Date Of Your Most Recent Tobacco Screening? 01/08/2024 [email or web address] Information not available 01/08/2024 What Is Your Relationship Status? Information not available 04/17/2023 Do You Use Your Seat Belt Or Car Seat Routinely? Yes Information not available 04/17/2023 Do You Have Smoke And Carbon Monoxide Detectors In Your Home? Yes Information not available 04/17/2023 Do You Use Sunscreen Routinely? No Information not available 04/17/2023 Has Tobacco Cessation Counseling Been Provided? No Information not available 04/17/2023 Sex: Female Functional Status Question Answer Note LastModified by Organizat ion Details LastModified Time Do you use any illicit or recreational drugs? No Information not available 04/17/2023 Do you or have you ever used any other forms of tobacco or nicotine? No Information not available 04/17/2023 What is your level of alcohol consumption? None Information not available 04/17/2023 Are you currently employed? No Information not available 10/07/2023 Are you able to care for yourself? Yes Information not available 04/17/2023 Mental Status Question Answer Note LastModified by Organization D etails LastModified Time Do you feel stressed (tense, restless, nervous, or anxious, or unable to sleep at night)? [id number] Information not available 04/17/2023 Family History Relationship Description Onset Age of this Age Resolved Age Notes LastModified by Organization Details LastModified Time Maternal Grandmother Diabetes mellitus bandersonma Not available 03/22 16:24:07 Medical History Condition Response Coronary Artery Disease N Atrial Fibrillation N High Blood Pressure N Thyroid Problems N Kidney or Bladder Problems N GI Problems N Depression Y COPD N Blood Clots N Skin Problems Y Anemia N Heart Attack (CA) N Diabetes N Anxiety Disorder N Muscle, Joint, or Bone Problems N Seizures/Epilepsy N Acid Reflux (GERD) N Cancer Y Stroke N Asthma N Allergies N High Cholesterol Y Hepatitis N Liver Disease N Headaches N Osteoporosis N Heart Failure N Gynecological History Statement/Question Response Current Control Method Menopause Obstetrics History GPAL:G 0 P 0 0 0 0 Immunizations Vaccine Type Date Status Note Provider Nam e and Address Organization Details Recorded Time Influenza, high-dose, quadrivalent, PF 9 completed Bridgette Camacho [place] null, [place] [facility] 05/03/2023 12:21:56 Influenza, high-dose, quadrivalent, PF 1 completed Bridgette Cam[place] [facility] 05/03/2023 12:21:56 Influenza, high-dose, quadrivalent, PF 0 completed Bridgette JaniceMEMO leija [place], [place] [facility] 05/03/2023 12:21:56 Influenza, high-dose, quadrivalent, PF 0 completed Bridgette Cam[place] [facility] 05/03/2023 12:21:56 Influenza, high-dose, quadrivalent, PF 2 completed Bridgette Cam[place] [facility] 05/03/2023 12:21:56 COVID-19, mRNA, LNP-S, PF, 100 mcg/0.5mL dose or 50 mcg/0.25mL dose 1 completed Bridgette Cam[place] [facility] 05/03/2023 12:21:56 COVID-19, mRNA, LNP-S, PF, 100 mcg/0.5mL dose or 50 mcg/0.25mL dose 1 completed Bridgette Cam[place] [facility] 05/03/2023 12:21:56 COVID-19, mRNA, LNP-S, PF, 30 mcg/0.3 mL dose 1 completed Bridgette [place] [facility] 05/03/2023 12:21:56 Influenza, high-dose, trivalent, PF 7 completed Bridgette Cam[place] [facility] 05/03/2023 12:21:56 Influenza, high-dose, trivalent, PF 6 completed Bridgette Cam[place] [facility] 05/03/2023 12:21:56 Influenza, high-dose, trivalent, PF 8 completed Bridgette Cam[place] [facility] 05/03/2023 12:21:56 Influenza, split virus, trivalent, preservative 4 completed Bridgette Cam[place] [facility] 05/03/2023 12:21:56 Past Encounters Encounter ID Performer Location Encounter Start Date Encounter Closed Date Diagnosis/Indication Diagnosis SNOMED-CT Code Diagnosis ICD10 Code Diagnosis Note [id number] MD Jacquelin Padilla (Adult Med) [address] [place] [id number] 0 04/17/2023 15:46:31 04/17/2023 17:12:28 Vitamin B12 deficiency (non anemic) 76927926 E53.8 Altered mental status 41 4090612 R41.82 Hyperlipidemia 07752906 E78.5 [id number] MD Jacquelin Padilla (Adult Med) [address] [place] [address] [id number] 0 05/03/2023 11:47:03 05/03/2023 13:02:38 Anxiety 00195306 F41.9 Hyperlipidemia 73142247 E78.5 Memory impairment 330374 006 R41.3 [id number] MD Jacquelin Padilla (Adult Med) [address] [place] [address] [id number] 05/29/2023 14:04:58 05/29/2023 15:28:50 Memory impairment 241638879 R41.3 Hallucinations 2641873 R 44.3 Anxiety 10520894 F41.9 [id number] MD Jacquelin Padilla (Adult Med) [address] [place] [address] [id number] 0 08/02/2023 10:47:58 08/02/2023 11:58:54 Anxiety 25000508 F41.9 Hyperlipidemia 26189579 E78.5 [id number] Mohini Reyes MD [facility] [address] [place] [address] 10/07/2023 15:44:54 10/07/2023 17:31:47 Liver function tests outside reference range 020488134 R94.5 Essential hypertension 64956202 I10 Hyperlipidemia 35562201 E78.5 Memory impairment 550213 006 R41.3 Hallucinations 7693740 R 44.3 [id number] [facility] [address] [place] [phone] 0 01/08/2024 16:10:10 01/08/2024 17:10:48 Hyperlipidemia 52684102 E78.5 Essential hypertension 96146984 I10 Dysuria 81707531 R30.0 Health Concerns Section Related Observation LastModified by Organization Detai ls LastModified Time None Recorded Concern Status LastModified by Organization Details LastModified Time None Recorded Advance Directives Directive Y: Payers Insurance Date Sequence Insurance Name Policy Number Policy Orr Covered Member ID Orr Member ID Guarantor Name 01/05/2024 1 [place] [facility] [id number] [facility] 01/05/2024 [place] [id number] 10/07/2023 2 [employer] SUPPLEMENTAL - [employer]UR[employer] (MEDICARE SUPPLEMENT) PLAN N Sol Godoy [id number] Sol Godoy Notes Date Note Type Note Provider Name and Address Organization Details Recorded Time 05/03/2023 text/html MRI unremarkable as was blood test she still has kind of a foggy feeling head Mohini Reyes MD Attn: Accounting, [address] [place], [address], [facility] 05/03/2023 22:27:28 05/29/2023 text/html Has changed her mind about seeing the specialist she is having some urinary impairment some hallucinations and anxiety Mohini Reyes MD Attn: Accounting, [address] [place], [address], [facility] 05/29/2023 22:21:24 08/02/2023 text/html She quit taking the Zoloft anxiety hide she did see the psychiatrist who put her on Abilify but she has not started it yet and she is still having some problems. Mohini Reyes MD Attn: Accounting, [address] [place], [address], [facility] 08/03/2023 12:27:05 10/07/2023 text/html she has had some elevated LFTs she was in the hospital for mental status changes found to have UTI and now she is in assisted living in memory care she is brought in by doing her qqhzh-gj-qhiofzek she is taking sertraline B12 Abilify and amlodipine Mohini Reyes MD Attn: Accounting, [address] [place], [address], [place] [facility] 10/12/2023 13:34:01 01/08/2024 text/html her depression s eems to be doing okay dementia there has been no problems with regards to any decompensation she was brought in by family member blood pressure is controlled on current therapy her facility is asking for a urinalysis Mohini Reyes MD Attn: Accounting, [address] [place], [address], [place] [facility] 01/11/2024 13:45:24 OBGyn Episode No OBEpisode recorded.
--- OUTSIDE RECORDS SUMMARY | 2024-08-22 19:26 | XMS_ITS | Clinical Summary ---
Author Organization [facility] Address [address] [place] [address] Care Team Providers Care Quality Lab Technician Name Role Phone Ramu Reyes MD Primary Care Provider [phone] Source Comments [facility],non-owned Affiliates and Associated Physician Practices is amultiple site organization consisting of ambulatory clinics and hospital sitesin [place], [place], [place] and [place]. This disclosure is being madepursuant to the Care Everywhere program and may not contain all information available regarding this patient. Last updated 17.[facility] Allergies No known active allergies Medications * Be aware that medications may not be up to date on this document. Alwaysverify current medications with the patient. albuterol HFA (VENTOLIN HFA) 108 (90 BASE) MCG/ACT inhaler Inhale 2 Puffs by mouth every 6 hours as needed for Wheezing or Cough 1 Inhaler 04/28/2016 Active fluticasone propionate (FLONASE) 50 MCG/ACT nasal sprayIndication s:Nasal Signs and Symptoms [place] 2 Sprays into each nostril once daily Reasons: Signs and Symptoms of Nose Diseases 1 Bottle 04/28/2016 Active Active Problems No known active problems Social History Tobacco Use Types Packs/Day Years Used Date Smoking Tobacco: Never Comments Unknown Sex and Gender Information Value Date Recorded Sex Assigned at Not on file Legal Sex Female 9:56 AM WIRE ANNEALER Gender Identity Not on file Sexual Orientation Not on file Last Filed Vital Signs Vital Sign Reading Time Taken Comments Blood Pressure 114/74 04/28/2016 11:13 AM WIRE ANNEALER Pulse 96 04/28/2016 11:13 AM WIRE ANNEALER Temperature 37.3 C (99.2 F) 04/28/2016 11:13 AM WIRE ANNEALER Respiratory Rate 17 04/28/2016 11:13 AM WIRE ANNEALER Oxygen Saturation 96% 04/28/2016 11:13 AM WIRE ANNEALER Inhaled Oxygen Concentration - - Weight 63.5 kg (140 lb) 04/28/2016 11:13 AM WIRE ANNEALER Height 162.6 cm (5' 4) 04/28/2016 11:13 AM WIRE ANNEALER Body Mass Index 24.03 04/28/2016 11:13 AM WIRE ANNEALER Plan of Treatment Health Maintenance Due Date Last Done Comments BONE DENSITY TESTING 1942 DTAP/TDAP/TD VACCINES (1 - Tdap) 1961 PNEUMOCOCCAL VACCINE 50+ (1 of 1 - PCV) 1992 ZOSTER VACCINE (1 of 2) 1992 Respiratory Syncytial Virus (RSV) Vaccine Pt: or over 60 yrs (1 - 1-dose 75+ series) 2017 COVID-19 VACCINE ( - 2023-2 5 season) 2023 DEPRESSION SCREENING 02/19/2024 INFLUENZA VACCINE (Season Ended) 2024 HEPATITIS B VACCINE Aged Out No longe r eligible based on patient's age to complete this topic HIB VACCINE Aged Out No longer eligi ble based on patient's age to complete this topic HPV VACCINE Aged Out No longer eligi ble based on patient's age to complete this topic MENINGOCOCCAL (Group B) VACC INE SHARED DECISION-MAKING Aged Out No longer eligibl e based on patient's age to complete this topic MENINGOCOCCAL GROUPS A/C/Y/W VACCINE Aged Out No longer eligible b ased on patient's age to complete this topic [place] [address] MEDICARE MEDICARE Care Teams Quality Lab Technician Relationship Specialty Start Date End Date Ramu Reyes MD PCP - General Internal Medicine 04/28/16
--- OUTSIDE RECORDS SUMMARY | 2024-08-22 19:26 | XMS_ITS | Continuity of Care Document ---
Author Organization [facility] Address [address] [place] [address] [facility] [address] [place] [address] Phone Care Team Providers Care Exhibits Coordinator Name Role Phone Morgan Boles Unavailable Unavailable Procedures Procedure Date Eye Exam Established Pt Advance Directives Directive Yes / No Effective Date File Name No Information Encounters Encounter Description Practice Location Reason(s) For Visit Diagnoses Date Provider Providers Copied on Encounter [facility], [address] [place] [address] [address], [place], [place], [id number], [place] tel:[phone] [facility] No Information 0-200 8 Elvi Morgan. [address] [facility] [address], [place], [address], [place]. tel:[phone] Family History Family Member Type Diagnosis Age At Onset No Information Payers Payer name Insurance type Covered libertarian ID Authoriza tion(s) [place] [id number] Social History Type Description Quantity Date Captured Comments Sex Female Smoking Status No Information Chief Complaint And Reason For Visit No Information Reason For Referral Reason For Referral No Information History Of Present Illness Encounter Date Complaint History Of Prese nt Illness No Information Functional Status Date Functional Assessmen t No Information Instructions Date Instruction Additional Infor mation No Information Assessments Type Assessment Date No Information Patient Care Teams Name Effective Dates (start - stop) Status Members No Information
[2024-08-22 19:37] LABS: Add Urine Microscopic? NO; Appearance Urine Clear (Clear); Glucose Urine UA Negative (Negative); Leukocyte Esterase Ur Negative LEU/UL (Negative); Nitrate Urine Negative (Negative); Non Pathogenic Casts 0-2; Specific Grav Ur 1.005 (1.001-1.035)
--- NOTE | 2024-08-22 20:17 | ED.HEATRA ---
HPI - Head Injury General Chief complaint: Head Injury Stated complaint: unwitnessed glf Time Seen by Provider: 08/22/24 19:05 History of Present Illness HPI Narrative: 83-year-old female presenting from her Memory Care halfway facility after mechanical fall. Patient states that she fell on some slick ground and fell face 1st towards the right side. Staff found her and called ambulance for assistance. She has some obvious bruising to the right side of her face and around the eye and a subconjunctival hematoma. No reported loss of consciousness and no anticoagulation or blood thinner use. Patient is awake alert to her baseline times 1-2. No neurological deficits. She ambulates with a steady gait and ambulates without the assistance of a walker or cane. Family members are present at bedside. They were also concerned that she has maybe a UTI as she gets frequent urinary tract infections. Patient's only complaint now is some pain with urination but no nausea, vomiting, vision changes, abdominal pain, back pain. No facial pain or difficulty with eye movement or any visual deficits. Related Data Home Medications ?Medication ?Instructions ?Recorded ?Confirmed ?Last Taken ?Type aripiprazole 2 mg tablet 2 mg PO HS 08/24/23 08/29/23 Unknown History sertraline 25 mg tablet 25 mg PO DAILY 08/24/23 08/29/23 Unknown History Allergies Allergy/AdvReac Type Severity Reaction Status Date / Time Sulfa (Sulfonamide Allergy Unknown Unknown Verified 08/29/23 16:41 Antibiotics) Review of Systems Review of Systems: As reviewed above in HPI [facility] Past Medical History Medical History Depression Arthritis Dementia Family History Family History Sibling Family history of diabetes mellitus in first degree relative Social History Social History Smoking status: Never smoker Alcohol intake: never Substance use: never Do You Feel Safe in your Home?: Yes Lack of Transportation: No Lack of Food: Never True Current Housing: I Have Housing Concerned About Future Housing: No Difficulty Paying Gas/Electric Bills: No Difficulty Paying for Meds: No Currently Unemployed: No Education: High School Diploma/GED Difficulty w/ Childcare or Family Care: No Spiritual care concerns: No Exam Narrative: GENERAL: [Well-appearing, well-nourished, and in no acute distress.] HEAD: Right-sided scalp hematoma frontal, right-sided arline orbital hematoma, right-sided cheek contusion/ecchymosis without any step-offs or deformities. EYES: Right-sided subconjunctival hematoma without any extraocular movement impairment or pain with extraocular movement. No entrapment signs. ENT: Nares clear, no rhinorrhea or epistaxis. Mucous membranes moist. NECK: Supple. CHEST: [Clear to auscultation. No respiratory distress.] HEART: [Regular rate and rhythm]. No murmur heard. [Normal peripheral pulses.] ABDOMEN: [Soft, nondistended], [nontender], [No rigidity or guarding] EXTREMITIES: Normal range of motion. [No edema.] No obvious trauma to the extremities, trunk or abdomen, no spinal tenderness. SKIN: Warm, dry, no rash. NEURO: [No focal deficits]. Alert and oriented x1-2 which is her baseline. No ataxia. Full strength and sensation throughout both arms and legs. No midline neck pain. PSYCH: [Normal mood and affect.] Course Vital Signs Vital signs: Vital Signs Pulse Rate 76 08/22/24 16:44 Respiratory Rate 16 08/22/24 16:44 Blood Pressure 141/66 H 08/22/24 16:44 Pulse Oximetry 100 08/22/24 16:44 Temperature 36.6 C 08/22/24 18:43 Pulse Rate 88 08/22/24 19:30 Respiratory Rate 18 08/22/24 19:30 Blood Pressure 136/73 08/22/24 19:30 Pulse Oximetry 95 08/22/24 19:43 Oxygen Delivery Room Air 08/22/24 16:46 MDM - Head Injury MDM Narrative Medical decision making narrative: 83-year-old female presenting from her Memory Care halfway facility after mechanical fall. Patient states that she fell on some slick ground and fell face 1st towards the right side. Staff found her and called ambulance for assistance. She has some obvious bruising to the right side of her face and around the eye and a subconjunctival hematoma. No reported loss of consciousness and no anticoagulation or blood thinner use. Patient is awake alert to her baseline times 1-2. No neurological deficits. She ambulates with a steady gait and ambulates without the assistance of a walker or cane. Family members are present at bedside. They were also concerned that she has maybe a UTI as she gets frequent urinary tract infections. Patient's only complaint now is some pain with urination but no nausea, vomiting, vision changes, abdominal pain, back pain. No facial pain or difficulty with eye movement or any visual deficits. Examination reveals Right-sided scalp hematoma frontal, right-sided arline orbital hematoma, right-sided cheek contusion/ecchymosis without any step-offs or deformities. There is also a right-sided subconjunctival hematoma without any entrapment signs, no pain with extraocular movements. No crossing into the limbus or any pupil asymmetry. Patient is better baseline mentation, normal vital signs here urinalysis ordered and CT of the head and neck were obtained for any potential traumatic injuries. No wounds requiring any closure or repair. CT scan showed no fracture or traumatic malalignment in the cervical spine and CT of the head shows no acute intracranial abnormality with no acute osseous abnormalities besides the right frontal scalp hematoma and the cheek soft tissue swelling. Patient was ambulated here in the emergency depart without any difficulties and we discussed with patient and family sending her back to her nursing facility with memory care given her unremarkable workup. Urinalysis is negative. She was given some Pyridium for her dysuria without any signs of urinary tract infection. Patient is safe for discharge home at this time. Medical Records Attestation: I reviewed the patient's medical records. Lab Data Attestation: I reviewed the patient's lab results. Labs: Lab Results 08/22/24 Range/Units 19:17 Urine Color Yellow (Yellow) Urine Appearance Clear (Clear) Urine pH 8.0 (5.0-9.0) Ur Specific [place] 1.005 (1.001-1.035) Urine Protein Negative (Negative) mg/dL Urine Glucose (UA) Negative (Negative) mg/dL Urine Ketones Negative (Negative) mg/dL Ur Blood (Man) Non-hemolyzed trace H (Negative) Urine Nitrate Negative (Negative) Urine Bilirubin Negative (Negative) Urine Urobilinogen 0.2 (<2.0) mg/dL Leukocyte Esterase Rfl Negative (Negative) CORIE/UL Urine RBC 3-5 H (0-2) /hpf Urine WBC 0-5 (0-3) /hpf Ur Squamous Epith Cells None seen (Few) /hpf Urine Bacteria None seen /hpf Urine Casts 0-2 Imaging Data Attestation: I personally reviewed and interpreted this imaging study as follows: My impression: Impressions Head CT 08/22/24 18:07 IMPRESSION: No acute intracranial process. Cervical Spine CT 08/22/24 18:17 IMPRESSION: No acute fracture or traumatic malalignment in the cervical spine. Discharge Plan Discharge Clinical Impression: CHI (closed head injury), Periorbital hematoma of right eye, Subconjunctival hematoma, Dysuria Patient Disposition: Home Condition: Stable Instructions: Antibiotic Form, Black Eye (ED), Concussion (ED), Head Injury (ED) Additional Instructions: Your imaging studies do not show any fractures or bleeding. Your symptoms of dysuria are not currently related to urinary tract infection based on her labs. We will send you home with phenazopyridine which can help dysuria and urinary symptoms. Take Tylenol and ibuprofen for the aches and swelling. The swelling around the face and the I should go down after several days but might worsen over the next 24-48 hours as the hematoma evolved. Return with any new or worsening concerns such as recurrent falls, mental status changes, weakness or any other emergent concerns. Follow-up with regular doctor on a short-term basis of possible. Patient Language: Cypriot Prescriptions: New phenazopyridine 200 mg tablet 200 mg PO TID Qty: 6 0RF No Action sertraline 25 mg Tablet 25 mg PO DAILY aripiprazole 2 mg Tablet 2 mg PO HS amlodipine 10 mg Tablet 10 mg PO DAILY 30 Days Qty: 30 0RF cefdinir 300 mg capsule 300 mg PO Q12H 7 Days Qty: 14 0RF Follow-up/Referrals: Eric,MD Ramu [Primary Care Provider] - Time of Disposition: 21:55
[2024-08-22] MEDS: PHENAZOPYRIDINE HCL 100 MG TABLET 200 MG PO (20:52)
== END 2024-08-22 22:30 ==
PROVIDERS: Emergency Provider Student in an Organized Health Care Education/Training Program; PCP Internal Medicine
DX: S00.11XA Contusion of right eyelid and periocular area, initial encounter (principal); H11.31 Conjunctival hemorrhage, right eye; S00.03XA Contusion of scalp, initial encounter; S00.83XA Contusion of other part of head, initial encounter; R30.0 Dysuria; F03.90 Unspecified dementia, unspecified severity, without behavioral disturbance, psychotic disturbance, mood disturbance, and anxiety; M19.90 Unspecified osteoarthritis, unspecified site; F32.A Depression, unspecified; W01.0XXA Fall on same level from slipping, tripping and stumbling without subsequent striking against object, initial encounter
CPT/HCPCS: 70450; 72125; 81003; 99284; A9270